=== PATIENT | male | born 1990 | race African-American/Black ===

== ENCOUNTER 2024-09-22 23:44 | Emergency (ER) | payer OTHER, SELFPAY ==
--- OUTSIDE RECORDS SUMMARY | 2024-09-22 23:47 | XMS_ITS | Encounter Summary ---
Author Organization [facility] Address [address] [place] [address]. [place], [place] [id number] [place] [id number] Care Team Providers Care Visitor Services Associate Name Role Phone Hayley Martinez Primary Care Provider [phone] Encounter Details Date Type Department Care Team (Late st Contact Info) Description 05/07/2020 [employer] Message Enc [facility] Internal [facility] [address] [place] [address] Hayley Martinez APNP [address] [place] [address] RE: Follow Up/Update Social History Tobacco Use Types Packs/Day Years Used Date Smoking Tobacco: Former Cigarettes 1 2016 Smokeless Tobacco: Never Alcohol Use Standard Drinks/Week Comments Yes 1 (1 standard drink = 0.6 oz pur e alcohol) SOCIAL--weekends, 12 pack AUDIT-C Answer Date Recorded Frequency of Alcohol Consumption 4 or more times a week 05/22/2019 Average Number of Drinks Not on file 019 Frequency of Binge Drinking Not on file 05/01 PHQ-2 Answer Date Recorded PHQ-2 Score 0 08/06/2019 Sex and Gender Information Value Date Recorded Sex Assigned at Not on file Legal Sex Male 7:15 PM CDT Gender Identity Not on file Sexual Orientation Not on file COVID-19 Exposure Response Date Recorded In the last month, have you been in contact with someone who was confirmed or suspected to have Coronavirus / COVID-19? No / Unsure 04/23/2020 1:18 PM CDT documented as of this encounter Progress Notes * Isaac Saini MD - 05/08/2020 10:10 AM CDT Hayley patient. documented in this encounter Plan of Treatment Upcoming Encounters Date Type Department Care Team (Late st Contact Info) Description 11/01/2024 9:30 AM PERSONNEL SPECIALIST Office Visit [facility] [facility], [address] [place] [address] Malcolm Mccloud MD [facility]. [address] [place] [address] documented as of this encounter Visit Diagnoses Not on filedocumented in this encounter Additional Health Concerns Infection Onset Date Last Indicated Resolved Time COVID-19 Rule Out 05/29/2020 05/30/2020 06/07/2020 7:30 AM CDT Assessment Noted Time PHQ-9 Depression Total Score: 1 05/22/20 19 9:36 AM CDT documented as of this encounter Care Teams Visitor Services Associate Relationship Specialty Start Date End Date Hayley Martinez APNP [address] [place] [address] PCP - General NURSE PRACTITIONER 05/22/19 documented as of this encounter
--- OUTSIDE RECORDS SUMMARY | 2024-09-22 23:47 | XMS_ITS | Referral Summary ---
Author Organization [facility] Address [address] [place] [address] Care Team Providers Care Hedis Review Nurse Name Role Phone Hayley Martinez Primary Care Provider + Encounters Date Type Department Care Team Description 09/11/2024 Telephone [facility] Diabetes and Endocrinology [address] [place] [phone] Mikaela Levy NP Appointment/Schedul es 09/07/[address] [facility] [address] [facility] 8th [place] [address] [place] [address] Merissa Choi RN 09/05/[address] [facility] Pul[facility] [address] [facility] 8th [place] [address] [place] [address] Gatito Gama MD Sarcoidosis (Primary Dx); High risk medication use 09/05/[address] [facility] [address] [facility] 8th [place] [address] [place] [phone] Darya Devine CMA 09/04/[address] [facility] Pul[facility] [address] [facility] 8th [place] [address] [place] [phone] Darya Devine CMA 08/25/2024 6:00 PM MANAGER IN TRAINING Lab [facility] ([facility] [address] [place] [address] Sarcoidosis 08/25/2024 3:35 PM MANAGER IN TRAINING - 08/25/2024 11:59 PM MANAGER IN TRAINING Hospital Encounter [facility] [address] [place] [address] Sarcoidosis Discharge Disposition: Discharge to home or self care 08/25/2024 4:00 PM MANAGER IN TRAINING Office Visit [facility] Pulmonary [address] [facility] 8th [address] [place] [phone] Gatito Gama MD Sarcoidosis (Primary Dx); High risk medication use 08/25/2024 3:15 PM MANAGER IN TRAINING - 08/25/2024 11:59 PM MANAGER IN TRAINING Hospital Encounter [facility] Pul[facility] [address] [facility] [address] [place] [address] Sarcoidosis Discharge Disposition: Discharge to home or self care 08/07/[address] [facility] Pulmonary [address] [facility] 8th [address] [place] [phone] Gatito Gama MD Sarcoidosis (Primary Dx); High risk medication use 08/02/2024 Orders Only [facility] Diabetes and Endocrinology [address] [place] [phone] Mikaela Levy NP Type 2 diabetes mellitus without complication, without long-term current use of insulin ([facility]/HCC) (HCC) (Primary Dx) from Last 3 Months Allergies No known active allergies Medications albuterol HFA (PROVENTIL HFA,VENTOLIN HFA,PROAIR HFA) 90 mcg/actuation inhaler Inhale 2 puffs every 6 (six) hours as needed for wheezing or shortness of breath 1 Inhaler 3 0 Active Additional Information Patient not taking.Reported on 08/25/2024 OneTouch Verio test strips strip USE TO TEST TID UTD 0 Active OneTouch Verio Flex meter misc USE UTD 0 Active OneTouch Delica Plus Lancet 33 gauge misc USE TO TEST TID 0 Active blood glucose diagnostic (glucose blood) strip 1 each by Not Applicable route 3 (three) times a day 0 Active LANCETS MISC 1 Device by Not Applicable route 3 (three) times a day 0 Active amLODIPine (NORVASC) 10 mg tablet daily Active atorvastatin (LIPITOR) 10 mg tablet daily 0 Active loratadine (CLARITIN) 10 mg tablet daily Active BD Génesis 2nd Gen Pen Needle 32 gauge x /32 needle USE UTD 0 Active ascorbic acid (VITAMIN C) 100 mg tablet 0 Active cholecalciferol (VITAMIN D-3) 400 unit capsule 0 Active hydroCHLOROthia zide (HYDRODIURIL) 25 mg tablet 2 Active losartan (COZAAR) 50 mg tablet Take 1 tablet (50 mg total) by mouth 2 (two) times a day 2 Active dapagliflozin propanediol (FARXIGA) 10 mg tablet Take 1 tablet (10 mg total) by mouth daily 30 tablet 6 4 Active semaglutide (OZEMPIC) 2 mg/dose (8 mg/3 mL) pen injector injection Inject 2 mg under the skin every 7 days 9 mL 2 4 Active Inflectra 100 mg injection 4 Active metFORMIN XR (GLUCOPHAGE XR) 500 mg 24 hr tabletIndicatio ns:Type 2 diabetes mellitus without complication, without long-term current use of insulin ([facility]) ([facility]) TAKE 2 TABLETS(1000 MG) BY MOUTH TWICE DAILY 360 tablet 1 4 Active Dexcom G7 Sensor deviceIndicatio ns:Type 2 diabetes mellitus without complication, without long-term current use of insulin (CMS/HCC) ([facility]) Change sensor every 10 days 9 each 3 4 Active fluconazole (DIFLUCAN) 150 mg tabletIndicatio ns:Urinary Tract/Genitouri nary Infection Take one tablet by mouth now & repeat in 3 days if no improvement in symptoms. 2 tablet 4 Active Additional Information Patient not taking.Reported on 08/25/2024 azaTHIOprine (IMURAN) 50 mg tablet Take 3 tablets (150 mg total) by mouth daily 90 tablet 2 5 Active azaTHIOprine (IMURAN) 50 mg tablet TAKE 3 TABLETS DAILY 90 tablet 4 025 Discontin ued(Reord er) Active Problems Problem Noted Date Diagnosed Date Hypertension associated with type 2 diabetes antonio litus 05/29/2024 Assessment & Plan (05/29/2024 1:46 PM CDT): Chronic problem. Controlled on current Losartan 50mg bid, HCTZ 25mg daily Will update labs. Verified that he uses mychart. Aware to check results/results letter in [employer]. Will contact by phone if needed. Class 3 severe obesity due t o excess calories with serious comorbidity and body mass index (BMI) of 40.0 to 44.9 in adult 05/29/2024 Assessment & Plan (05/29/2024 2:05 PM CDT): Discussed healthy diet and importance of regular physical activity (20- 30min/day, 150min/wk). Walks up to 16K steps/day at work. No exercise outside of work activity. BENITA (obstructive sleep apnea) 12/17/2020 Assessment & Plan (12/18/2021 3:29 PM CDT): The patient will continue with auto titrating CPAP set at 5-20 cm water pressure. Patient did receive an order for full set of supplies. [employer]. Patient is benefitting from CPAP Assessment & Plan (12/17/2020 2:44 PM CDT): The patient will continue with auto titrating CPAP therapy at 5-20 cm water pressure. The patient denied need for supplies. The DME company is [employer]. The patient was encouraged to increase CPAP usage to 4 hours a night on 70% of the nights. The patient is benefitting from CPAP therapy. Chronic hypoxemic respiratory failure ([facility]) 07/31/2020 Sarcoidosis 12/26/2019 Left sided abdominal pain 10/31/2019 Type 2 diabetes mellitus wit hout complication, without long-term current use of insulin ([facility]) 05/22/2019 Assessment & Plan (05/29/2024 2:06 PM CDT): Chronic problem. A1c at goal 6.3%. no changes at this time. Discussed dropping back metformin to 1000mg daily to see if BG rises. Current medications: Farxiga 10mg daily Metformin XR 1000mg twice daily with meals Ozempic 2mg weekly DM eye exam at [facility] summer 2023. Letter sent to get copy of report. Will update labs. Verified that he uses [facility]. Aware to check results/results letter in [employer]. Will contact by phone if needed. Discussed with Jose Santiago: Strive for regular exercise (30min most days) and diet (get at least 4-5 servings of fruit and veggies daily, avoid processed foods, increase lean protein intake and decrease carb portions as well as fruit juices, regular soda & desserts). Watch carbs and simple sugars. Check the blood sugar: Dexcom G7. Check the feet daily for skin breakdown and infection. Essential hypertension 05/22/2019 Resolved Problems Problem Noted Date Diagnosed Date Resolved Date Uncontrolled type 2 diabetes mellitus with hyperglycemia 04/29/2023 05/29/2024 Assessment & Plan (04/29/2023 3:57 PM CDT): Hba1c was Lab Results Component Value Date HGBA1C 6.1 04/29/2023 today, indicating adequate DM control, with risk of hypoglycemia Goal Hba1c of 6.1 and blood glucose in the 90 to 130 range was explained Diet and exercise were advised Prevention and treatment of hyypoglcyemia were discussed with the patient Blood glucose monitoring : Start CGM with freestyle Mela 3 Adjustment to medications: Increase Ozempic to 2 mg once Start Farxiga 10 mg daily Continue metformin a 1000 mg twice a day Lower Tresiba to 40 units daily Advised to lowering Tresiba by 10 units every week as long as blood glucoses stay in the 90 to 130 range Immunizations Name Administration Dates Next Due DTP 02/09/1992, 1,1990,10/03 DTaP 03/30/1995 DTaP, Unspecified 03/30/1995 Hep B, Adolescent or Pediatric 08/14/2002,2001,04/12/2001 HiB 10/31/1991, 1,1990,10/03 Influenza, Quadrivalent, Misti l Culture-based MDCK, Preservative Free, Antibiotic Free, Intramuscular 06/11/2023,06/11/2022 Influenza, Quadrivalent, Spl it, Preservative Free, Intramuscular 06/27/2020 MMR 03/30/1995,10/31/1991 MMRV 03/30/1995,10/31/1991 OPV 03/30/1995, 2,02/06/1991,12/05,1990 OPV, Unspecified 03/30/1995, 2,02/06/1991,12/05,1990 Tdap 05/22/2019 Social History Tobacco Use Types Packs/Day Years Used Date Smoking Tobacco: Former Cigarettes 1 6 1 - 05/31/2017 Smokeless Tobacco: Never Alcohol Use Standard Drinks/Week Comments Yes 0 (1 standard drink = 0.6 oz pur e alcohol) Sex and Gender Information Value Date Recorded Sex Assigned at Not on file Legal Sex Male 5:46 PM MANAGER IN TRAINING Gender Identity Not on file Sexual Orientation Not on file Last Filed Vital Signs Vital Sign Reading Time Taken Comments Blood Pressure 138/87 08/25/2024 3:54 PM MANAGER IN TRAINING Pulse 100 08/25/2024 3:54 PM MANAGER IN TRAINING Temperature 36.6 ??C (97.9 ??F) 08/25/2024 3:54 PM CS T Respiratory Rate 16 08/25/2024 3:54 PM MANAGER IN TRAINING Oxygen Saturation 100% 08/25/2024 3:54 PM MANAGER IN TRAINING Inhaled Oxygen Concentration - - Weight 142.9 kg (315 lb) 08/25/2024 3:54 PM MANAGER IN TRAINING Height 177.8 cm (5' 10 ) 08/25/2024 3:54 PM MANAGER IN TRAINING Body Mass Index 45.2 08/25/2024 3:54 PM MANAGER IN TRAINING Plan of Treatment Not on file Procedures Procedure Name Priority Date/Time Associated Diagnosis Comments EGFR Routine 08/25/2024 4:33 PM MANAGER IN TRAINING Sarcoidosis DIFFERENTIAL AUTO Routine 08/25/2024 4:3 3 PM MANAGER IN TRAINING Sarcoidosis CBC WITH AUTO DIFFERENTIAL Routine 08/25/2024 4:33 PM MANAGER IN TRAINING Sarcoidosis COMPREHENSIVE METABOLIC PANEL Routine 08/25/2024 4:33 PM MANAGER IN TRAINING Sarcoidosis HISTOPLASMA ANTIBODY Routine 08/25/2024 4:33 PM MANAGER IN TRAINING Sarcoidosis T-SPOT.TB Routine 08/25/2024 4:33 PM MANAGER IN TRAINING Sarcoidosis XR CHEST PA LATERAL 2 VIEWS Schedule Routine, Read Routine (OP Routine) 08/25/2024 3:42 PM MANAGER IN TRAINING Sarcoidosis PULMONARY FUNCTION TEST (PFT) Routine 08/25/2024 3:32 PM MANAGER IN TRAINING Sarcoidosis LIPID PANEL Routine 05/30/2024 9:16 AM CDT Type 2 diabetes mellitus without complication, without long-term current use of insulin (CMS/HCC) (HCC) ALBUMIN CREATININE RATIO, URINE Routine 05/30/2024 9:16 AM CDT Type 2 diabetes mellitus without complication, without long-term current use of insulin (CMS/HCC) (HCC) POCT HEMOGLOBIN A1C Routine 05/29/2024 1 :31 PM CDT Type 2 diabetes mellitus without complication, without long-term current use of insulin (CMS/HCC) (HCC) HEPATITIS PANEL, ACUTE Routine 07/30/2020 3:27 PM MANAGER IN TRAINING Sarcoidosis from Last 3 Months or Most Recently Relevant to Health Maintenance Results * Histoplasma Antibody Blood (08/25/2024 4:33 PM MANAGER IN TRAINING) Histoplasma Ab, yeast CF Negative Negative [facility] Histoplasma Ab, Immunodiffusion Negative Negative [facility] Comment: A negative complement fixation and immunodiffusion (CF/ID) result does not exclude the diagnosis of histoplasmosis. ?? Repeat testing by CF/ID in 1-2 weeks if clinically indicated. Test Performed by: [address] [address] [employer] Cutter: Sheeba Bee Ph.D.; CLIA# [id number] Blood 08/25/2024 4:33 PM MANAGER IN TRAINING 08/25/2024 5:24 PM MANAGER IN TRAINING us Gatito Gama MD LAB MICROBIOLOGY - GENERAL O RDERABLES Final Result [facility] Department [place] [address] Organ ref Lab * T-SPOT.TB Blood (08/25/2024 4:33 PM MANAGER IN TRAINING) [facility] T-SPOT.TB Negative [facility] Comment: Normal Value: Negative A negative test result does not exclude the possibility of exposure to or infection with Mycobacterium tuberculosis (M. tuberculosis). ??Patients with recent exposure to TB infected individuals exhibiting a negative T-SPOT.TB result should be considered for retesting within 6 weeks or if other relevant clinical symptoms indicate. ??Results from T-SPOT.TB testing must be used in conjunction with each individual's epidemiological history, current medical status, and results of other diagnostic evaluations. ??The T-SPOT.TB test is qualitative and results are reported as positive, borderline or negative, given that the test controls perform as expected. In line with the Centers for Disease Control and Prevention's 2010 recommendation to report quantitative measurements alongside the qualitative result, the laboratory provides spot counts for informational purposes only. ??The T-SPOT.TB test should not be interpreted as a quantitative test. T-SPOT.TB Panel A Spot Count 0 [facility] T-SPOT.TB Panel B Spot Count 0 [facility] T-SPOT.TB Negative Control Passed [facility] T-SPOT.TB Positive Control Passed [facility] Comment: Test Performed at: [facility], [place] [address] [place] [address] ??[phone] ? BAKARI QUINTANILLA,PHD Blood 08/25/2024 4:33 PM MANAGER IN TRAINING 08/25/2024 5:14 PM MANAGER IN TRAINING us Gatito Gama MD LAB MICROBIOLOGY - GENERAL O RDERABLES Final Result Performing Organization Address City/[facility]/ZIP Co de Phone Number [facility] Department [place] [address] * eGFR (08/25/2024 4:33 PM MANAGER IN TRAINING) eGFR >90 >=60 mL/min/1. 73 m2 Comment: Interpretive Data Reference Interval Normal ?>/= 90 mL/min/1.73m2 Mildly decreased* ? 60 - 89 mL/min/1.73m2 Mildly to moderately decreased ?45 - 59 mL/min/1.73m2 Moderately to severely decreased ??30 - 44 mL/min/1.73m2 Severely decreased ?15 - 29 mL/min/1.73m2 Kidney Failure ?< 15 ??mL/min/1.73m2 *Relative to young adult level Estimated glomerular filtration rate is determined by the 2020 CKD-EPI equation recommended by the National Kidney Foundation (A Unifying Approach to GFR Estimation: Recommendations of the NKF-ASK Task Force on Reassessing the Inclusion of Race in Diagnosing Kidney Disease, JASN 202). The CKD-EPI equation should not be used for patients with unstable renal function and has not been validated in children and those over 70. Current interpretive data was last reviewed 2021. Blood 08/25/2024 4:33 PM MANAGER IN TRAINING 08/25/2024 4:51 PM MANAGER IN TRAINING us Gatito Gama MD LAB BLOOD ORDERABLES Final R esult RASHADNYL JANICE [facility] Department [place] [address] * Differential, auto (08/25/2024 4:33 PM MANAGER IN TRAINING) Neutrophil abs 5.3 1.5 - 6.5 K/cumm Imm gran abs 0.0 0.0 - 0.1 K/cumm [facility] Lymphocyte abs 1.2 0.8 - 3.3 K/cumm [facility] Monocyte abs 0.7 0.2 - 0.8 K/cumm [facility] Eosinophil abs 0.2 0.0 - 0.5 K/cumm [facility] Basophil abs 0.0 0.0 - 0.1 K/cumm [facility] Neutrophil pct 70.9 % [facility] Comment: Interpretive Data Percent cell count reference ranges are not reported, since discordance with absolute values may lead to misinterpretation of CBC data. Current Interpretive Data was last revised on 2017. Imm gran pct 0.5 % [facility] Comment: Interpretive Data Percent cell count reference ranges are not reported, since discordance with absolute values may lead to misinterpretation of CBC data. Current Interpretive Data was last revised on 2017. Lymphocyte pct 16.0 % [facility] Comment: Interpretive Data Percent cell count reference ranges are not reported, since discordance with absolute values may lead to misinterpretation of CBC data. Current Interpretive Data was last revised on 2017. Monocyte pct 9.9 % [facility] Comment: Interpretive Data Percent cell count reference ranges are not reported, since discordance with absolute values may lead to misinterpretation of CBC data. Current Interpretive Data was last revised on 2017. Eosinophil pct 2.4 % [facility] Comment: Interpretive Data Percent cell count reference ranges are not reported, since discordance with absolute values may lead to misinterpretation of CBC data. Current Interpretive Data was last revised on 2017. Basophil pct 0.3 % [facility] Comment: Interpretive Data Percent cell count reference ranges are not reported, since discordance with absolute values may lead to misinterpretation of CBC data. Current Interpretive Data was last revised on 2017. Blood 08/25/2024 4:33 PM MANAGER IN TRAINING 08/25/2024 4:47 PM MANAGER IN TRAINING us Gatito Gama MD LAB BLOOD ORDERABLES Final R esult [facility] Department [place] [address] * CBC with auto differential (08/25/2024 4:33 PM MANAGER IN TRAINING) [facility] WBC 7.5 3.8 - 9.9 K/cumm Hgb 14.5 13.0 - 17.5 g/dL [facility] Hct 42.9 38.9 - 50.3 % [facility] Plt 246 150 - 400 K/cumm [facility] MPV 10.7 9.1 - 12.3 fL [facility] RBC 5.07 4.30 - 5.80 M/cumm [facility] MCV 84.6 81.3 - 96.4 fL [facility] MCH 28.6 27.1 - 33.3 pg [facility] MCHC 33.8 32.3 - 35.7 g/dL [facility] RDW CV 13.8 11.1 - 14.9 % [facility] RDW SD 42.7 35.7 - 48.1 fL [facility] NRBC abs 0.00 0.00 - 0.01 K/cumm [facility] Blood 08/25/2024 4:33 PM MANAGER IN TRAINING 08/25/2024 4:47 PM MANAGER IN TRAINING Gatito Gama MD LAB BLOOD ORDERABLES Final R esult [facility] [place] [address] * Comprehensive metabolic panel (08/25/2024 4:33 PM MANAGER IN TRAINING) [facility] Sodium 139 135 - 145 mmol/L Potassium, pl 3.9 3.3 - 4.9 mmol/L [facility] Chloride 100 97 - 110 mmol/L [facility] CO2 27 22 - 32 mmol/L [facility] Anion gap 12 2 - 15 mmol/L [facility] BUN 12 6 - 25 mg/dL [facility] Creatinine 1.01 0.80 - 1.30 mg/dL [facility] Glucose 92 70 - 199 mg/dL [facility] Comment: Interpretive Data Fasting glucose >/= 126 mg/dl is diagnostic for diabetes. ?? Fasting is defined as no caloric intake for at least 8 hours. Fasting glucose between 100 mg/dl to 125 mg/dl is diagnostic of prediabetes. In a patient with classic symptoms of hyperglycemia or hyperglycemic crisis, a random glucose >/= 200 mg/dl is diagnostic for diabetes. In the absence of unequivocal hyperglycemia, results should be confirmed by repeat testing. The classification and Diagnosis of Diabetes Diabetes Care 2021; 46: S19-S40. Current interpretive data was last revised 2022. Calcium 9.5 8.5 - 10.3 mg/dL [facility] Bilirubin, total 0.6 0.1 - 1.2 mg/dL [facility] Protein, pl 8.0 6.5 - 8.5 g/dL [facility] Albumin 4.6 3.5 - 5.0 g/dL [facility] Alk phos 90 40 - 130 Units/L [facility] ALT 22 7 - 55 Units/L [facility] AST 35 10 - 50 Units/L [facility] Blood 08/25/2024 4:33 PM MANAGER IN TRAINING 08/25/2024 4:47 PM MANAGER IN TRAINING us Gatito Gama MD LAB BLOOD ORDERABLES Final R esult [facility] Department [place] [address] * XR Chest Pa Lateral 2 Views (08/25/2024 3:42 PM MANAGER IN TRAINING) Anatomical Region Laterality Modality Body, Chest N/A Computed Radiogr aphy 08/25/2024 3:50 PM MANAGER IN TRAINING Impressions 08/25/2024 3:50 PM MANAGER IN TRAINING There are bilateral reticulonodular opacities in keeping with sarcoidosis, not significantly changed from the prior radiograph and better evaluated on the chest CT dated 02/25/2024. ??There may be mild superimposed bilateral parahilar and lower lung atelectasis. There is no new consolidation. ??No pleural effusion or pneumothorax is identified. ??The cardiomediastinal silhouette is unchanged with hilar and mediastinal lymphadenopathy which is better evaluated on the chest CT dated 02/25/2024. Electronically signed by: Malcolm Cassidy M.D. Narrative 08/25/2024 3:50 PM MANAGER IN TRAINING EXAMINATION: XR CHEST PA LATERAL 2 VIEWS COMPARISON: 01/14/2024 3:38 PM Procedure Note Malcolm Cassidy MD PhD - 08/25/2024 EXAMINATION: XR CHEST PA LATERAL 2 VIEWS COMPARISON: 01/14/2024 3:38 PM IMPRESSION: There are bilateral reticulonodular opacities in keeping with sarcoidosis, not significantly changed from the prior radiograph and better evaluated on the chest CT dated 02/25/2024. There may be mild superimposed bilateral parahilar and lower lung atelectasis. There is no new consolidation. No pleural effusion or pneumothorax is identified. The cardiomediastinal silhouette is unchanged with hilar and mediastinal lymphadenopathy which is better evaluated on the chest CT dated 02/25/2024. Electronically signed by: Malcolm Cassidy M.D. Gatito Gama MD IMG XR PROCEDURES Final Resu lt * Pulmonary Function Test - (08/25/2024 3:32 PM MANAGER IN TRAINING) FVC PRE 3.74 L [facility] FVC %PRE PRED 82 % [facility] FEV1 PRE 2.18 L [facility] FEV1 %PRE PRED 58 % [facility] FEV1/FVC PRE 58.4 % [facility] Anatomical Region Laterality Modality PFT 08/25/2024 3:23 PM MANAGER IN TRAINING Narrative 08/27/2024 1:57 PM MANAGER IN TRAINING PFT performed at:->[facility] Adult PFT [facility]- [id number] Procedure:->Spirometry Pulmonary Function Test Interpretation SPIROMETRY: There is a decrease in expiratory airflow at all lung volumes. The FEV1 to FVC ratio is reduced. The inspiratory loop is appropriate for the expiratory flow abnormality. Impression: There is a moderately severe obstructive defect. Compared with most recent study, there has been significant interval worsening of the FVC and FEV1. The attending pulmonary physician certifies a physician presence in the [facility] during the administration of aerosolized bronchodilator. The attending pulmonary physician certifies that he/she has reviewed and interpreted the graphic and numerical data of this pulmonary function study and agrees with the written final report. The lower limit of normal for PaO2 and %HbO2 is age dependent. However, the [facility] Pulmonary Function Laboratory defines hypoxemia as a PaO2 <56 mm Hg or a %HbO2 <89%. us Gatito Gama MD PFT ORDERABLES Final Result * Albumin Creatinine Ratio, Urine (05/30/2024 9:16 AM CDT) Creatinine, ur 172 20 - 320 mg/dL [facility] Microalbumin, ur 1.4 See Note: mg/dL [facility] Comment: Reference Range: Reference Range Not established Microalbumin/creat ratio 8 <30 mg/g creat [facility] Comment: The ADA defines abnormalities in albumin excretion as follows: Albuminuria Category ?Result (mg/g creatinine) Normal to Mildly increased ?? <30 Moderately increased ? 30-299 Severely increased ? > OR = 300 The ADA recommends that at least two of three specimens collected within a 3-6 month period be abnormal before considering a patient to be within a diagnostic category. Urine 05/30/2024 9:16 AM CDT 05/30/2024 9:17 AM CDT us Mikaela Levy [facility] LAB URINE ORDERABLES Rita l Result [facility] [address] [place] [address] * Lipid panel (05/30/2024 9:16 AM CDT) Cholesterol 176 <200 mg/dL [facility] HDL 74 > OR = 40 mg/dL [facility] Triglycerides 145 <150 mg/dL [facility] LDL 77 mg/dL (calc) [facility] Comment: Reference range: <100 Desirable range <100 mg/dL for primary prevention; ?? <70 mg/dL for patients with CHD or diabetic patients with > or = 2 CHD risk factors. LDL-C is now calculated using the Yael calculation, which is a validated novel method providing better accuracy than the Friedewald equation in the estimation of LDL-C. Richard TANG et al. JUAN. 2013;310(19): 3347-3079 (http://education.I Had Cancer/faq/SOI274) Chol/HDL ratio 2.4 <5.0 (calc) [facility] Non-HDL, (LDL+VLDL) 102 <130 mg/dL (calc) [facility] Comment: For patients with diabetes plus 1 major ASCVD risk factor, treating to a non-HDL-C goal of <100 mg/dL (LDL-C of <70 mg/dL) is considered a therapeutic option. Blood 05/30/2024 9:16 AM CDT 05/30/2024 9:17 AM CDT Mikaela Levy IND[facility]OOK LAB BLOOD ORDERABLES Rita l Result [facility] [address] [place] [address] * (ABNORMAL) POCT hemoglobin A1c (05/29/2024 1:31 PM CDT) Hemoglobin A1C, POC 6.3 4.0 - 5.6 % Blood 05/29/2024 1:31 PM CDT us Mikaela Levy NP POINT OF CARE TEST ORDERA BLES Final Result * Hepatitis panel, acute (07/30/2020 3:27 PM MANAGER IN TRAINING) Hep A IgM Nonreactive Nonreactive [facility] Comment: Interpretive Data: If Hep A IgM Ab is reported as Equivocal, a new sample should be drawn in two weeks for testing. Current interpretive data was last revised on 19. Hep B core IgM Nonreactive Nonreactive [facility] Comment: Interpretive Data If HepB Core IgM Ab is reported as Equivocal, a new sample should be drawn in two weeks for testing. Current interpretive data was last revised on 19. Hep C Ab Nonreactive Nonreactive [facility] Comment:Antibodies to HCV no t detected. Does NOT exclude the possibility of recent exposure to HCV. HepBsAg Nonreactive Nonreactive [facility] Blood specimen (specimen) 07/30/2020 3:27 PM MANAGER IN TRAINING 07/30/2020 3:50 PM MANAGER IN TRAINING us Gatito Gama MD LAB MICROBIOLOGY - GENERAL O RDERABLES Edited Result - Final [facility] Department [place] [address] from Last 3 Months or Most Recently Relevant to Health Maintenance Insurance [id number] [employer] PPO [facility] HMO/PPO Address: [facility] [address] [place] [address] [facility] MEDICAL [facility] HMO/PPO Address: [facility] [address] [place] [address] Care Teams Hedis Review Nurse Relationship Specialty Start Date End Date Hayley Martinez PA [address] [place] [address] PCP - General Nurse Practitioner 11/02/19
--- OUTSIDE RECORDS SUMMARY | 2024-09-22 23:47 | XMS_ITS | Encounter Summary ---
Author Organization [facility] Address [address] [place] [address]. [place], [place] [id number] [place] [address] Care Team Providers Care Content Strategist Name Role Phone Hayley Martinez Primary Care Provider [phone] Encounter Details Date Type Department Care Team (Late st Contact Info) Description 04/05/2020 [place] Message Enc [facility] Medical Group Family & Internal Medicine [facility] [address] [place] [address] Hayley Martinez APNP [address] [place] [address] RE: Follow Up/Update Social History [...] have Coronavirus / COVID-19? 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 [place] [address] [place] [address] documented as of this encounter Visit Diagnoses Not on filedocumented in this encounter Additional Health Concerns Infection Onset Date Last Indicated Resolved Time COVID-19 Rule Out 05/29/2020 05/30/2020 06/07/2020 7:30 AM CDT Assessment Noted Time PHQ-9 Depression Total Score: 1 05/22/20 9:36 AM CDT documented as of this encounter Care Teams Content Strategist Relationship Specialty Start Date End Date Hayley Martinez APNP [address] [place] [address] PCP - General NURSE PRACTITIONER 05/22/19 documented as of this encounter
--- OUTSIDE RECORDS SUMMARY | 2024-09-22 23:47 | XMS_ITS | Clinical Summary ---
Author Organization [facility] Address [address] [place] [phone] Phone Care Team Providers Care Financial Foundations Associate Name Role Phone Unavailable Primary Care Provider Unavailabl e Allergies No known active allergies Medications No known medications Social History Tobacco Use Types Packs/Day Years Used Date Smoking Tobacco: Passive Smo ke Exposure - Never Smoker Alcohol Use Standard Drinks/Week Comments Yes 0 (1 standard drink = 0.6 oz pur e alcohol) social Sex and Gender Information Value Date Recorded Sex Assigned at Not on file Legal Sex Male 6:05 AM HAND CELL TUBER Gender Identity Not on file Sexual Orientation Not on file Last Filed Vital Signs Vital Sign Reading Time Taken Comments Blood Pressure 150/66 07/07/2011 11:48 AM HAND CELL TUBER Pulse 72 07/07/2011 11:48 AM HAND CELL TUBER Temperature 37.1 ??C (98.7 ??F) 07/07/2011 9:58 AM CS T Respiratory Rate 18 07/07/2011 11:48 AM HAND CELL TUBER Oxygen Saturation 99% 07/07/2011 11:48 AM HAND CELL TUBER Inhaled Oxygen Concentration - - Weight - - Height - - Body Mass Index - - Plan of Treatment Health Maintenance Due Date Last Done Comments DTAP/TDAP/TD VACCINES (1 - Tdap) 2009 HEPATITIS B VACCINES (1 of 3 - 19+ 3-dose series) 2009 INFLUENZA VACCINE (#1) 2024 HPV VACCINES Aged Out No longer eligi ble based on patient's age to complete this topic PNEUMOCOCCAL VACCINE 0-64 YEARS Aged Out No longer eligible based on patient's age to complete this topic
--- OUTSIDE RECORDS SUMMARY | 2024-09-22 23:47 | XMS_ITS | Patient Health Summary ---
Author Organization [facility] Address [address] [facility] [place] [address] Care Team Providers Care Hydrocrane Operator Name Role Phone Unavailable Primary Care Provider Unavailabl e Note from [facility],non-owned Affiliates and Associated Physician Practices is amultiple site organization consisting of ambulatory clinics and hospital sitesin [place], [place], [place] and [place]. This disclosure is being madepursuant to the Care Everywhere program and may not contain all information available regarding this patient. Last updated 18.[facility] Social History Tobacco Use Types Packs/Day Years Used Date Smoking Tobacco: Never Assessed Sex and Gender Information Value Date Recorded Sex Assigned at Not on file Gender Identity Not on file Sexual Orientation Not on file Procedures * DERMATOPATHOLOGY(Performed 2020) Results * DERMATOPATHOLOGY (2020 12:00 AM RECREATION ESTABLISHMENT MANAGER) Case Report Dermatopathology Report ? Case: [id number] ? Authorizing Provider: ??Natalie Patterson MD ? Collected: ? 2020 12:00 AM ? Ordering Location: ? [facility] Care DermPath Lab ?Received: ?08/02/2020 08:29 AM ? Pathologist: ? Farideh Barton MD ? Specimen: ?Skin, right thumb ? 0 1:42 PM [facility] DERMATOPATHOLOGY LABORATORY Final Diagnosis Specimen A. SKIN, right thumb: VERRUCA VULGARIS (B07.8) 0 1:42 PM [facility] DERMATOPATHOLOGY LABORATORY Clinical History R/O VV, irritated. 0 1:42 PM [facility] DERMATOPATHOLOGY [facility]ORATORY Gross Description Specimen A: Received is one formalin filled container labeled with the patient's name and designated right thumb. The specimen consists of a shave measuring [id number], bisected. Jar 0. 0 1:42 PM RECREATION ESTABLISHMENT MANAGER DERMATOPATHOLOGY LABORATORY Microscopic Description Specimen A. SKIN, right thumb: There is digitated epidermal hyperplasia, hypergranulosis, vacuolated granular layer cells, and compact hyperorthokeratosis . 0 1:42 PM RECREATION ESTABLISHMENT MANAGER DERMATOPATHOLOGY LABORATORY Disclaimer An external and internal positive and negative controls are appropriate for the histochemical, immunohistochemical and immunofluorescence stain(s) in this case (if any), except where stated explicitly. The performance characteristics of the stain(s) cited in this report were developed and its performance characteristic determined by the Dermatopathology Laboratory at [facility], directed by Dr. Ethan Jones. These tests need not be, and therefore are not, approved by the [place] Food and Drug Administration. The tests are used for clinical purposes. Billing Codes Specimen Charges Stain Charges 89297 1 0 1:42 PM RECREATION ESTABLISHMENT MANAGER DERMATOPATHOLOGY LABORATORY Embedded Images 0 1:42 PM RECREATION ESTABLISHMENT MANAGER DERMATOPATHOLOGY LABORATORY Pathology/Cytolog y TISSUE SPECIMEN FROM SKIN / Unknown 2020 08/02/2020 8:29 AM RECREATION ESTABLISHMENT MANAGER Natalie Patterson MD LAB - PATHOLOGY/CYT OLOGY ORDERABLES Performing Organization Address City/State/[facility] Co de Phone Number DERMATOPATHOLOGY LABORATORY [facility] - Department of Dermatology [facility] Specialized Medicine [address] [place] [address], [address] [phone]
--- OUTSIDE RECORDS SUMMARY | 2024-09-22 23:47 | XMS_ITS | Clinical Summary ---
Author Organization [facility] Address [address] [place] [address]. [place], [place] [address] [place] [address] Care Team Providers Care Manager Target Name Role Phone Hayley Martinez Primary Care Provider [phone] Allergies No known active allergies Medications albuterol sulfate HFA (PROAIR HFA) 108 (90 Base) MCG/ACT inhalerIndications: Shortness of breath,Pneumonia of both lungs due to infectious organism, unspecified part of lung Inhale 2 puffs into the lungs every 6 (six) hours as needed for Wheezing. 1 Inhaler 0 Active INSULIN SYRINGE 1CC/29G (SAFETY INSULIN SYRINGES) 29G X 1/2 1 ML MiscIndications:Typ e 2 diabetes mellitus without complication, without long-term current use of insulin ([facility] HHS/[facility]) 1 Device by Does not apply route nightly. 100 each 0 Active loratadine 10 MG tablet Take 1 tablet (10 mg total) by mouth daily. Active Insulin Pen Needle (PEN NEEDLES 29GX1/2 ) 29G X 12MM MiscIndications:Typ e 2 diabetes mellitus without complication, without long-term current use of insulin ([facility] HHS/HCC) 1 Units by Does not apply route 4 (four) times daily. 200 each 3 0 Active METFORMIN 500 MG tabletIndications:T ype 2 diabetes mellitus without complication, without long-term current use of insulin (CMS/HCC HHS/HCC) TAKE 2 TABLETS(100 0 MG) BY MOUTH TWICE DAILY WITH MEALS 360 tablet 0 Active Glucose Blood (BLOOD GLUCOSE TEST STRIPS) StripIndications:Ty pe 2 diabetes mellitus without complication, without long-term current use of insulin ([facility]) 1 strip by Does not apply route 3 (three) times a day. 300 strip 1 0 Active Lancets MiscIndications:Typ e 2 diabetes mellitus without complication, without long-term current use of insulin ([facility]) 1 Device by Does not apply route 3 (three) times a day. 300 Container 1 0 Active azaTHIOprine (IMURAN) 50 MG tablet Take 3 tablets (150 mg total) by mouth daily. 4 Active Continuous Glucose Sensor (Cinexio G7 SENSOR) Misc CHANGE SENSOR EVERY 10 DAYS 4 Active dapagliflozin (FARXIGA) 10 MG tablet Take 1 tablet (10 mg total) by mouth daily. 4 Active INFLECTRA 100 MG injection 4 Active semaglutide (OZEMPIC) 2 mg/dose injection (PEN) Inject 2 mg into the skin once a week. 4 Active atorvastatin (LIPITOR) 10 MG tabletIndications:M ixed hyperlipidemia TAKE 1 TABLET(10 MG) BY MOUTH EVERY NIGHT AT BEDTIME 90 tablet 4 Active losartan (COZAAR) 50 MG tabletIndications:E ssential hypertension TAKE 1 TABLET(50 MG) BY MOUTH TWICE DAILY 180 tablet 1 4 Active amLODIPine (NORVASC) 10 MG tabletIndications:E ssential hypertension TAKE 1 TABLET(10 MG) BY MOUTH DAILY 90 tablet 4 Active hydroCHLOROthiazide (HYDRODIURIL) 25 MG tabletIndications:E ssential hypertension Take 1 tablet (25 mg total) by mouth every morning. 90 tablet 3 4 Active Active Problems Problem Noted Date Diagnosed Date Mixed hyperlipidemia 03/23/2024 BENITA (obstructive sleep apnea) 12/02/2021 Elevated CPK 12/12/2020 Pulmonary sarcoidosis ([facility]) 12/26/19 20 Essential hypertension 05/22/2019 Type 2 diabetes mellitus wit hout complication, without long-term current use of insulin ([facility]) 05/22/2019 Resolved Problems Problem Noted Date Diagnosed Date Resolved Date BMI 45.0-49.9, adult ([facility]/HCC [facility]) 11/25/2020 03/23/2024 Left sided abdominal pain 10/31/2019 Encounters Date Type Department Care Team Description 09/14/2024 Scan [facility] INFO SRVCS Scanned, Doc [facility] Lab (SCAN) 08/25/2024 Scan [facility] HEALTH INFO SRVCS Scanned, Doc Med Group 08/15/2024 Telephone [facility] Medical Group Family & Internal Medicine [address] [address] aHyley Martinez APNP Lab Results 07/17/[address] [address] Malcolm Mccloud MD Appointment Request from Last 3 Months Immunizations Name Administration Dates Next Due Dtap 03/30/1995 Dtap (Generic) 03/30/1995 Dtp 02/09/1992, 1,1990,1990 Dtp (Generic) 02/09/1992, 1,1990,1990 Fluzone 6 Months+ Quad (0.5 mL Prefilled Syringe) 06/27/2020 Hepatitis B Pediatric 08/14/2002,06/12/2002,03/30 Hib (Generic) 10/31/1991, 1,1990,1990 Influenza Adult (Generic) 06/11/2022 MMR 03/30/1995,10/31/1991 MMR (Generic) 03/30/1995,10/31/1991 Opv 03/30/1995, 2,02/06/1991,1990,1990 Pneumococcal (Prevnar 20) 03/23/2024 Tdap (Historical Only-select from magnify glass) 05/22/2019 Family History Medical History Relation Comments Diabetes Father Hypertension Father COPD Maternal Grandfather Hypertension Maternal Grandmother Diabetes Mother Diabetes Sister Relation Status Comments Father Maternal Grandfather Maternal Grandmother Mother Sister Social History Tobacco Use Types Packs/Day Years Used Date Smoking Tobacco: Former Cigarettes 1 6 2 011 - 2017 Smokeless Tobacco: Never Tobacco Cessation:Counseling Given: Not Answered Alcohol Use Standard Drinks/Week Comments Yes 1 (1 standard drink = 0.6 oz pur e alcohol) SOCIAL--weekends, 12 pack AUDIT-C Answer Date Recorded Frequency of Alcohol Consumption 4 or more times a week 05/22/2019 Average Number of Drinks Not on file 019 Frequency of Binge Drinking Not on file 05/01 PHQ-2 Answer Date Recorded Patient Health Questionnaire-2 Score 0 03/23/2024 Sex and Gender Information Value Date Recorded Sex Assigned at Not on file Legal Sex Male 7:15 PM CDT Gender Identity Not on file Sexual Orientation Not on file Last Filed Vital Signs Vital Sign Reading Time Taken Comments Blood Pressure 124/80 03/23/2024 8:08 AM CDT Pulse 96 03/23/2024 8:08 AM CDT Temperature 36.8 ??C (98.2 ??F) 03/23/2024 8:08 AM CD T Respiratory Rate 16 03/23/2024 8:08 AM CDT Oxygen Saturation 96% 03/23/2024 8:08 AM CDT Inhaled Oxygen Concentration - - Weight 135.7 kg (299 lb 1.6 oz) 03/23/2024 8:08 AM CDT Height 180.3 cm (5' 11 ) 03/23/2024 8:08 AM CDT Body Mass Index 41.72 03/23/2024 8:08 AM CDT Plan of Treatment Upcoming Encounters Date Type Department Care Team (Late st Contact Info) Description 11/01/2024 9:30 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 [place] [address] [place] [address] Health Maintenance Due Date Last Done Comments COVID-19 Vaccine (#1) 1995 Influenza Adult (#1) 2024 06/11/2023, 06/11/2022, 06/27/2020 PHQ-2 (Physician [place]) 08/30/2024 03/23/2024 Hemoglobin A1C 09/23/2024 03/23/2024, 11/28, 12/02/2021, Additional history exists Annual Physical 03/23/2025 03/23/2024, 11/28, 12/02/2021 PHQ-2 (Physician [place]) 03/23/2025 03/23/2024 Kidney Health Evaluation 05/30/2025 05/30/2024 Lipid Panel 05/30/2025 05/30/2024, 06/0 03/2023, 12/02/2021, Additional history exists Diabetes: Retinopathy Eye Exam 10/06/2025 10/06/2023, 05/30/2021, 05/02/2020 DTaP, Tdap and Td Vaccines (4 - Td or Tdap) 05/22/2029 05/22/2019, 03/30/1995, 03/30/1995, Additional history exists Hepatitis B Vaccines Completed 08/14/2002, 06/12/2002, 04/12/2001 Hepatitis C Completed 12/02/2021 Pneumococcal Vaccine: Pediatrics (0 to 5 Years) and At-Risk Patients (6 to 64 Years) Completed 03/23/2024 HPV Vaccines Aged Out No longer eligi ble based on patient's age to complete this topic Meningococcal B Vaccine Aged Out No l onger eligible based on patient's age to complete this topic Meningococcal Vaccine Aged Out No chema daija eligible based on patient's age to complete this topic RSV Immunizations Under 20 Months Aged Out No longer eligible based on patient's age to complete this topic Procedures Procedure Name Priority Date/Time Associated Diagnosis Comments OUTSIDE LAB (SCAN ORDER) 09/14/2024 OUTSIDE LAB (SCAN ORDER) 09/14/2024 LIPID PANEL Routine 05/30/2024 9:14 AM CDT General medical examination HEMOGLOBIN, GLYCOSYLATED Routine 03/23/2024 Type 2 diabetes mellitus without complication, without long-term current use of insulin ([facility]/HCC [facility]/HCC) DIABETIC RETINOPATHY EXAM (NEGATIVE)(SCAN ORDER) Routine 10/06/2023 HEPATITIS C ANTIBODY W/RFX TO HCV RNA Routine 12/02/2021 9:31 AM CDT from Last 3 Months or Most Recently Relevant to Health Maintenance Results * OUTSIDE LAB (SCAN ORDER) (09/14/2024) Only the most recent of2 resultswithin the time period is included. 09/14/2024 us Doc [facility] Scanned SCANNING Final Resu lt * LIPID PANEL (05/30/2024 9:14 AM CDT) CHOLESTEROL 176 <200 mg/dL [facility] HDL 72 > OR = 40 mg/dL [facility] TRIGLYCERIDES 146 <150 mg/dL [facility] LDL (CALCULATED) 79 mg/dL (calc) [employer] [facility] Comment: Reference range: <100 Desirable range <100 mg/dL for primary prevention; ?? <70 mg/dL for patients with CHD or diabetic patients with > or = 2 CHD risk factors. LDL-C is now calculated using the Richard-Tran calculation, which is a validated novel method providing better accuracy than the Friedewald equation in the estimation of LDL-C. Richard SS et al. JUAN. 2013;310(19): 0498-4261 (http://education.M[employer]/faq/CCL630) CHOL/HDL RATIO 2.4 <5.0 (calc) [facility] NON HDL CHOLESTEROL 104 <130 mg/dL (calc) [employer] [facility] Comment: For patients with diabetes plus 1 major ASCVD risk factor, treating to a non-HDL-C goal of <100 mg/dL (LDL-C of <70 mg/dL) is considered a therapeutic option. 05/30/2024 9:14 AM CDT 05/30/2024 9:15 AM CDT Narrative [facility] - 05/31/2024 10:50 AM CDT FASTING:YES FASTING: YES Resulting Agency Comment Performing Organization Information: ?Site ID: [id number] ?Name: [facility] ?Address: [id number] [place] [address] [place] [address] ?Director: Sav Ramires MD [facility] Final Resul t Performing Organization Address City/[facility] Co de Phone Number [facility] [address] [place] [address], [place] * HEMOGLOBIN, GLYCOSYLATED (03/23/2024) HGB A1C 6.0 % [facility] 03/23/2024 [facility] Final Resul t Performing Organization Address [facility] Co de Phone Number [facility] [address] [place] [address], [place] * DIABETIC RETINOPATHY EXAM (NEGATIVE) (10/06/2023) [facility] Scanned SCANNING Final Resu lt Performing Organization Address [facility] de Phone Number [facility] * HEPATITIS C ANTIBODY W/RFX TO HCV RNA (12/02/2021 9:31 AM CDT) HEPATITIS C AB NON-REACTI VE NON-REACT [facility] SIGNAL TO CUTOFF 0.33 <[address] [facility] Comment: HCV antibody was non-reactive. There is no laboratory evidence of HCV infection. In most cases, no further action is required. However, if recent HCV exposure is suspected, a test for HCV RNA (test code 71866) is suggested. For additional information please refer to http://education.[employer]The[employer].iRates/faq/YOO40r5 (This link is being provided for informational/ educational purposes only.) 12/02/2021 9:31 AM CDT 12/02/2021 9:34 AM CDT Narrative [facility] - 12/03/2021 12:38 PM CDT FASTING:YES FASTING: YES [facility] Final Resul t Performing Organization Address City/[facility] Co de Phone Number [facility] [address] [address] [phone] from Last 3 Months or Most Recently Relevant to Health Maintenance Insurance [employer] Care Teams Manager Target Relationship Specialty Start Date End Date Hayley Martinez APNP [address] [place] [address] PCP - General NURSE PRACTITIONER 05/22/19
--- OUTSIDE RECORDS SUMMARY | 2024-09-22 23:47 | XMS_ITS | Encounter Summary ---
Author Organization [facility] Address [address] [place] [address]. [place], [place] [id number] [place] [id number] Care Team Providers Care Semi Driver Name Role Phone Hayley Martinez BRIDGETTE Primary Care Provider [phone] Reason for Visit * Reason Comments Lab (SCAN) Encounter Details Date Type Department Care Team (Latest Contact Info) Description 09/14/2024 Scan HEALTH INFO SRVCS Scanned, Doc Med Group Lab (SCAN) Social History Tobacco Use Types Packs/Day Years Used Date Smoking Tobacco: Former Cigarettes 1 - 2016 Smokeless Tobacco: Never Alcohol Use Standard [...] on file Sexual Orientation Not on file documented as of this encounter Plan of Treatment Upcoming Encounters Date Type Department Care Team (Late st Contact Info) Description 11/01/2024 9:30 AM IS CONSULTANT Office Visit [facility], [address] [place], [place] [phone] Malcolm Mccloud MD [facility]. [address] [place] [address] documented as of this encounter Procedures Procedure Name Priority Date/Time Associated Diagnosis Comments OUTSIDE LAB (SCAN ORDER) 09/14/2024 OUTSIDE LAB (SCAN ORDER) 09/14/2024 documented in this encounter Results * OUTSIDE LAB (SCAN ORDER) (09/14/2024) 09/14/2024 us Doc [facility] Scanned SCANNING Final Resu lt * OUTSIDE LAB (SCAN ORDER) (09/14/2024) 09/14/2024 us [facility] Scanned SCANNING Final Resu lt documented in this encounter Visit Diagnoses Not on filedocumented in this encounter Additional Health Concerns Assessment Noted Time PHQ-9 Depression Total Score: 1 12/11/19 23 1:24 PM CDT documented as of this encounter Care Teams Semi Driver Relationship Specialty Start Date End Date Hayley Martinez APNP [address] [place] [address] PCP - General NURSE PRACTITIONER 05/22/19 documented as of this encounter
--- OUTSIDE RECORDS SUMMARY | 2024-09-22 23:47 | XMS_ITS | Clinical Summary ---
Author Organization [facility] Address [address] [place] [address] Care Team Providers Care Foil Cutter Name Role Phone Hayley Martinez Primary Care Provider + Allergies No known active allergies Medications albuterol [...] 2nd Gen Pen Needle 32 gauge x 5/32 needle USE UTD 0 Active ascorbic acid [...] without long-term current use of insulin (CMS/HCC) ([facility]) TAKE 2 TABLETS(1000 MG) BY MOUTH TWICE DAILY 360 tablet 1 4 Active Dexcom G7 Sensor deviceIndicatio ns:Type 2 diabetes mellitus without complication, without long-term current use of insulin (CMS/HCC) ([facility]) Change sensor every 10 days 9 each [...] Will update labs. Verified that he uses [employer]. Aware to check results/results letter in [employer]. Will contact by phone if needed. Class [...] an order for full set of supplies. [employer]. Patient is benefitting from CPAP Assessment & Plan (12/17/2020 2:44 PM CDT): The patient will continue with auto titrating CPAP therapy at 5-20 cm water pressure. The patient denied need for supplies. The DME company is [employer]. The patient was encouraged to increase CPAP usage to 4 hours a night on 70% of the nights. The patient is benefitting from CPAP therapy. Chronic hypoxemic respiratory failure ([facility]) 07/31/2020 Sarcoidosis 12/26/2019 Left sided abdominal pain 10/31/2019 Type 2 diabetes mellitus wit hout complication, without long-term current use of insulin ([facility]) 05/22/2019 Assessment & Plan (05/29/2024 2:06 PM [...] Will update labs. Verified that he uses [employer]. Aware to check results/results letter in [employer]. Will contact by phone if needed. Discussed [...] Blood glucose monitoring : Start CGM with [employer] Mela 3 Adjustment to medications: Increase Ozempic to 2 mg once Start Farxiga 10 mg daily Continue metformin a 1000 mg twice a day Lower Tresiba to 40 units daily Advised to lowering Tresiba by 10 units every week as long as blood glucoses stay in the 90 to 130 range Encounters Date Type Department Care Team Description 09/11/2024 Telephone [facility] Diabetes and Endocrinology [address] [place] [phone] Mikaela Levy NP Appointment/Schedul es 09/07/2024 Telephone [facility] [address]th [place] [address] [place] [address] Merissa Choi RN 09/05/2024 Orders Only [facility] [address] [facility] [address]th [place] [address] [place] [address] Gatito Gama MD Sarcoidosis (Primary Dx); High risk medication use 09/05/2024 Telephone [facility] [address]th [place] [address] [place] [address] Darya Devine CMA 09/04/2024 Telephone [facility] [address]th [place] [address] [place] [address] Sybil RAMONA Lackey 08/25/2024 6:00 PM VEGETABLE BUNCHER Lab [facility] [address] [place] [address] Sarcoidosis 08/25/2024 4:00 PM VEGETABLE BUNCHER Office Visit [facility] [address] [facility] [address]th [place] [address] [place] [address] Gatito Gama MD Sarcoidosis (Primary Dx); High risk medication use 08/25/2024 3:35 PM VEGETABLE BUNCHER - 08/25/2024 11:59 PM VEGETABLE BUNCHER Hospital Encounter [facility] [address] [place] [address] Sarcoidosis Discharge Disposition: Discharge to home or self care 08/25/2024 3:15 PM VEGETABLE BUNCHER - 08/25/2024 11:59 PM VEGETABLE BUNCHER Hospital Encounter [facility] [address] [facility] [address] [place] [address] Sarcoidosis Discharge Disposition: Discharge to home or self care 08/07/2024 Orders Only [facility] [address] [facility] [address]th [place] [address] [place] [address] Gatito Gama MD Sarcoidosis (Primary Dx); High risk medication use 08/02/2024 Orders Only [facility] Medical Group Diabetes and Endocrinology [address] [place] [phone] Mikaela Levy, CAMRON Type 2 diabetes mellitus without complication, without long-term current use of insulin (CMS/HCC) (HCC) (Primary Dx) from Last 3 Months Immunizations Name Administration Dates Next Due DTP 02/09/1992, 1,1990,10/03 DTaP 03/30/1995 DTaP, Unspecified 03/30/1995 Hep B, Adolescent or Pediatric 08/14/2002,2001,04/12/2001 HiB 10/31/1991, 1,1990,10/03 Influenza, Quadrivalent, Misti l Culture-based MDCK, Preservative Free, Antibiotic Free, Intramuscular 06/11/2023,06/11/2022 Influenza, Quadrivalent, Spl it, Preservative Free, Intramuscular 06/27/2020 MMR 03/30/1995,10/31/1991 MMRV 03/30/1995,10/31/1991 OPV 03/30/1995, 2,02/06/1991,12/05,1990 OPV, Unspecified 03/30/1995, 2,02/06/1991,12/05,1990 Tdap 05/22/2019 Surgical History Surgery Date Site/Laterality Comments NASAL POLYP EXCISION Medical History Medical History Date Comments Diabetes mellitus (HCC) Family History Medical History Relation Name Comments Diabetes Father COPD Maternal Grandfather Emphysema Maternal Grandfather Diabetes Mother Relation Name Status Comments Father Maternal Grandfather Mother Social History Tobacco Use Types Packs/Day Years Used Date Smoking Tobacco: Former Cigarettes 1 6 1 - 05/31/2017 Smokeless Tobacco: Never Alcohol Use Standard Drinks/Week Comments Yes 0 (1 standard drink = 0.6 oz pur e alcohol) Sex and Gender Information Value Date Recorded Sex Assigned at Not on file Legal Sex Male 5:46 PM VEGETABLE BUNCHER Gender Identity Not on file Sexual Orientation Not on file Obstetrics History Last Filed Vital Signs Vital Sign Reading Time Taken Comments Blood Pressure 138/87 08/25/2024 3:54 PM VEGETABLE BUNCHER Pulse 100 08/25/2024 3:54 PM VEGETABLE BUNCHER Temperature 36.6 ??C (97.9 ??F) 08/25/2024 3:54 PM CS T Respiratory Rate 16 08/25/2024 3:54 PM VEGETABLE BUNCHER Oxygen Saturation 100% 08/25/2024 3:54 PM VEGETABLE BUNCHER Inhaled Oxygen Concentration - - Weight 142.9 kg (315 lb) 08/25/2024 3:54 PM VEGETABLE BUNCHER Height 177.8 cm (5' 10 ) 08/25/2024 3:54 PM VEGETABLE BUNCHER Body Mass Index 45.2 08/25/2024 3:54 PM VEGETABLE BUNCHER Plan of Treatment Health Maintenance Due Date Last Done Comments Depression Screening 1990 Dilated Eye Exam 1990 Pneumococcal vaccine <65 (1 of 2 - PCV) 1996 Regular Well Visit/Exam 18-64 2008 Zoster Vaccine (1 of 2) 2009 Influenza Vaccine (#1) 2024 , 06/11/2022, 06/27/2020 Hemoglobin A1C 11/26/2024 05/29/2024, 04/29/2023 Foot Exam 05/29/2025 05/29/2024 Albumin Creatinine Ratio, Urine 05/30/2025 05/30/2024 Lipid Panel 05/30/2025 05/30/2024, 1008/2023, 02/04/2023, Additional history exists eGFR 08/25/2025 08/25/2024, 100 08/2023, 01/14/2024, Additional history exists DTaP/Tdap/Td Vaccine (7 - Td or Tdap) 05/22/2029 05/22/2019, 03/30/1995, 03/30/1995, Additional history exists Varicella Vaccines Completed 03/30/1995, 10/31/1991 Hepatitis C Screening Completed 07/30/2020 HPV Vaccines Aged Out No longer eligi ble based on patient's age to complete this topic Procedures Procedure Name Priority Date/Time Associated Diagnosis Comments EGFR Routine 08/25/2024 4:33 PM VEGETABLE BUNCHER Sarcoidosis DIFFERENTIAL AUTO Routine 08/25/2024 4:3 3 PM VEGETABLE BUNCHER Sarcoidosis CBC WITH AUTO DIFFERENTIAL Routine 08/25/2024 4:33 PM VEGETABLE BUNCHER Sarcoidosis COMPREHENSIVE METABOLIC PANEL Routine 08/25/2024 4:33 PM VEGETABLE BUNCHER Sarcoidosis HISTOPLASMA ANTIBODY Routine 08/25/2024 4:33 PM VEGETABLE BUNCHER Sarcoidosis T-SPOT.TB Routine 08/25/2024 4:33 PM VEGETABLE BUNCHER Sarcoidosis XR CHEST PA LATERAL 2 VIEWS Schedule Routine, Read Routine (OP Routine) 08/25/2024 3:42 PM VEGETABLE BUNCHER Sarcoidosis PULMONARY FUNCTION TEST (PFT) Routine 08/25/2024 3:32 PM VEGETABLE BUNCHER Sarcoidosis LIPID PANEL Routine 05/30/2024 9:16 AM [...] HEPATITIS PANEL, ACUTE Routine 07/30/2020 3:27 PM VEGETABLE BUNCHER Sarcoidosis from Last 3 Months or Most Recently Relevant to Health Maintenance Results * Histoplasma Antibody Blood (08/25/2024 4:33 PM VEGETABLE BUNCHER) Pathologist [facility] Histoplasma Ab, yeast CF Negative Negative [facility] Histoplasma Ab, Immunodiffusion Negative Negative GENA GERMAN Comment: A negative complement fixation and immunodiffusion (CF/ID) result does not exclude the diagnosis of histoplasmosis. ?? Repeat testing by CF/ID in 1-2 weeks if clinically indicated. Test Performed by: [place] [address] [employer] Operator: Sheeba Bee Ph.D.; CLIA# [id number] Blood 08/25/2024 4:33 PM VEGETABLE BUNCHER 08/25/2024 5:24 PM VEGETABLE BUNCHER us Gatito Gama MD LAB MICROBIOLOGY - GENERAL O RDERABLES Final Result GENA CAMACHO [facility] [place] [address] [facility] Lab * T-SPOT.TB Blood (08/25/2024 4:33 PM VEGETABLE BUNCHER) Pathologist [facility] T-SPOT.TB Negative SeeBelow Comment: Normal Value: Negative A negative test [...] test. T-SPOT.TB Panel A Spot Count 0 [facility] T-SPOT.TB Panel B Spot Count 0 [facility] T-SPOT.TB Negative Control Passed [facility] T-SPOT.TB Positive Control Passed [facility] Comment: Test Performed at: [employer] [place], [place] ??[address] ? BAKARI QUINTANILLA,PHD Blood 08/25/2024 4:33 PM VEGETABLE BUNCHER 08/25/2024 5:14 PM VEGETABLE BUNCHER us Gatito Gama MD LAB MICROBIOLOGY - GENERAL O RDERABLES Final Result [facility] [place] [address] * eGFR (08/25/2024 4:33 PM VEGETABLE BUNCHER) Pathologist [facility] eGFR >90 >=60 mL/min/1. 73 m2 Comment: [...] last reviewed 2021. Blood 08/25/2024 4:33 PM VEGETABLE BUNCHER 08/25/2024 4:51 PM VEGETABLE BUNCHER Gatito Gama MD LAB BLOOD ORDERABLES Final R esult [facility] [place] [address] * Differential, auto (08/25/2024 4:33 PM VEGETABLE BUNCHER) Pathologist [facility] Neutrophil abs 5.3 1.5 - 6.5 K/cumm Imm gran abs 0.0 0.0 - 0.1 K/cumm [facility] Lymphocyte abs 1.2 0.8 - 3.3 K/cumm [facility] Monocyte abs 0.7 0.2 - 0.8 K/cumm [facility] Eosinophil abs 0.2 0.0 - 0.5 K/cumm [facility] Basophil abs 0.0 0.0 - 0.1 K/cumm [facility] Neutrophil pct 70.9 % [facility] Comment: Interpretive Data Percent cell count reference ranges are not reported, since discordance with absolute values may lead to misinterpretation of CBC data. Current Interpretive Data was last revised on 2017. Imm gran pct 0.5 % [facility] Comment: Interpretive Data Percent cell count reference ranges are not reported, since discordance with absolute values may lead to misinterpretation of CBC data. Current Interpretive Data was last revised on 2017. Lymphocyte pct 16.0 % [facility] Comment: Interpretive Data Percent cell count reference ranges are not reported, since discordance with absolute values may lead to misinterpretation of CBC data. Current Interpretive Data was last revised on 2017. Monocyte pct 9.9 % [facility] Comment: Interpretive Data Percent cell count reference ranges are not reported, since discordance with absolute values may lead to misinterpretation of CBC data. Current Interpretive Data was last revised on 2017. Eosinophil pct 2.4 % [facility] Comment: Interpretive Data Percent cell count reference ranges are not reported, since discordance with absolute values may lead to misinterpretation of CBC data. Current Interpretive Data was last revised on 2017. Basophil pct 0.3 % [facility] Comment: Interpretive Data Percent cell count reference ranges are not reported, since discordance with absolute values may lead to misinterpretation of CBC data. Current Interpretive Data was last revised on 2017. Blood 08/25/2024 4:33 PM VEGETABLE BUNCHER 08/25/2024 4:47 PM VEGETABLE BUNCHER Gatito Gama MD LAB BLOOD ORDERABLES Final R esult [facility] [place] [address] * CBC with auto differential (08/25/2024 4:33 PM VEGETABLE BUNCHER) WBC 7.5 3.8 - 9.9 K/cumm Hgb 14.5 13.0 - 17.5 g/dL [facility] Hct 42.9 38.9 - 50.3 % [facility] Plt 246 150 - 400 K/cumm [facility] MPV 10.7 9.1 - 12.3 fL [facility] RBC 5.07 4.30 - 5.80 M/cumm [facility] MCV 84.6 81.3 - 96.4 fL [facility] MCH 28.6 27.1 - 33.3 pg [facility] MCHC 33.8 32.3 - 35.7 g/dL [facility] RDW CV 13.8 11.1 - 14.9 % [facility] RDW SD 42.7 35.7 - 48.1 fL [facility] NRBC abs 0.00 0.00 - 0.01 K/cumm [facility] Blood 08/25/2024 4:33 PM VEGETABLE BUNCHER 08/25/2024 4:47 PM VEGETABLE BUNCHER Gatito Gama MD LAB BLOOD ORDERABLES Final R esult [facility] [place] [address] * Comprehensive metabolic panel (08/25/2024 4:33 PM VEGETABLE BUNCHER) Sodium 139 135 - 145 mmol/L Potassium, pl 3.9 3.3 - 4.9 mmol/L [facility] Chloride 100 97 - 110 mmol/L [facility] CO2 27 22 - 32 mmol/L [facility] Anion gap 12 2 - 15 mmol/L [facility] BUN 12 6 - 25 mg/dL [facility] Creatinine 1.01 0.80 - 1.30 mg/dL [facility] Glucose 92 70 - 199 mg/dL [facility] Comment: Interpretive Data Fasting glucose >/= 126 [...] classification and Diagnosis of Diabetes Diabetes Care 202; 46: S19-S40. Current interpretive data was last revised 2022. Calcium 9.5 8.5 - 10.3 mg/dL [facility] Bilirubin, total 0.6 0.1 - 1.2 mg/dL [facility] Protein, pl 8.0 6.5 - 8.5 g/dL [facility] Albumin 4.6 3.5 - 5.0 g/dL [facility] Alk phos 90 40 - 130 Units/L [facility] ALT 22 7 - 55 Units/L [facility] AST 35 10 - 50 Units/L [facility] Blood 08/25/2024 4:33 PM VEGETABLE BUNCHER 08/25/2024 4:47 PM VEGETABLE BUNCHER us Gatito Gama MD LAB BLOOD ORDERABLES Final R esult [facility] [place] [address] * XR Chest Pa Lateral 2 Views (08/25/2024 3:42 PM VEGETABLE BUNCHER) Anatomical Region Laterality Modality Body, Chest N/A Computed Radiogr aphy 08/25/2024 3:50 PM VEGETABLE BUNCHER Impressions 08/25/2024 3:50 PM VEGETABLE BUNCHER There are bilateral reticulonodular opacities in keeping [...] Malcolm Cassidy M.D. Narrative 08/25/2024 3:50 PM VEGETABLE BUNCHER EXAMINATION: XR CHEST PA LATERAL 2 VIEWS [...] Pulmonary Function Test - (08/25/2024 3:32 PM VEGETABLE BUNCHER) FVC PRE 3.74 L [facility] FVC %PRE PRED 82 % [facility] FEV1 PRE 2.18 L [facility] FEV1 %PRE PRED 58 % [facility] FEV1/FVC PRE 58.4 % [facility] Anatomical Region Laterality Modality PFT 08/25/2024 3:23 PM VEGETABLE BUNCHER Narrative 08/27/2024 1:57 PM VEGETABLE BUNCHER PFT performed at:->[facility] PFT [facility]- [facility] Procedure:->Spirometry Pulmonary Function [...] and %HbO2 is age dependent. However, the [facility] Function [facility] defines hypoxemia as a PaO2 <56 mm Hg or a %HbO2 <89%. Gatito Gama MD PFT ORDERABLES Final Result [...] 05/30/2024 9:17 AM CDT us Mikaela Levy NP LAB URINE ORDERABLES Rita l Result NATHAN [facility] [address] [place] [address] * Lipid panel (05/30/2024 9:16 AM CDT) [...] LDL-C. Richard SS et al. JUAN. 2013;310(19): 8089-9858 (http://education.GuideWall.Creditera/faq/QZE801) Chol/HDL ratio 2.4 <5.0 (calc) [facility] Non-HDL, (LDL+VLDL) 102 <130 mg/dL (calc) [facility] Comment: For patients with diabetes plus 1 major ASCVD risk factor, treating to a non-HDL-C goal of <100 mg/dL (LDL-C of <70 mg/dL) is considered a therapeutic option. Blood 05/30/2024 9:16 AM CDT 05/30/2024 9:17 AM CDT Mikaela Levy NP LAB BLOOD ORDERABLES Rita l Result [facility] [address] [facility] [place] [address] * (ABNORMAL) POCT hemoglobin A1c (05/29/2024 1:31 PM CDT) Hemoglobin A1C, POC 6.3 4.0 - 5.6 % Blood 05/29/2024 1:31 PM CDT us Mikaela Levy NP POINT OF CARE TEST ORDERA BLES Final Result * Hepatitis panel, acute (07/30/2020 3:27 PM VEGETABLE BUNCHER) Pathologist [facility] Hep A IgM Nonreactive Nonreactive [facility] Comment: Interpretive Data: If Hep A IgM Ab is reported as Equivocal, a new sample should be drawn in two weeks for testing. Current interpretive data was last revised on 19. Hep B core IgM Nonreactive Nonreactive [facility] Comment: Interpretive Data If HepB Core IgM Ab is reported as Equivocal, a new sample should be drawn in two weeks for testing. Current interpretive data was last revised on 19. Hep C Ab Nonreactive Nonreactive [facility] Comment:Antibodies to HCV no t detected. Does NOT exclude the possibility of recent exposure to HCV. HepBsAg Nonreactive Nonreactive [facility] Blood specimen (specimen) 07/30/2020 3:27 PM VEGETABLE BUNCHER 07/30/2020 3:50 PM VEGETABLE BUNCHER Gatito Gama MD LAB MICROBIOLOGY - GENERAL O RDERABLES Edited Result - Final [facility] [place] [address] from Last 3 Months or Most Recently Relevant to Health Maintenance Insurance [employer] [facility] [employer] Care Teams Foil Cutter Relationship Specialty Start Date End Date Hayley Martinez PA [address] [place] [phone] PCP - General Nurse Practitioner 11/02/19
--- OUTSIDE RECORDS SUMMARY | 2024-09-22 23:47 | XMS_ITS | Encounter Summary ---
Author Organization [facility] Address [address] [place] [address]. [place], [place] [id number] [place], [place] [id number] Care Team Providers Care Supervisor Cigarette Making Department Name Role Phone Hayley Martinez Primary Care Provider [phone] Encounter Details Date Type Department Care Team (Late st Contact Info) Description 08/08/2021 MyChart Message Enc [facility] Family & Internal Medicine [facility] [address] [place] [address] Hayley Martinez APNP [address] [place] [address] Medication Questions Social History Tobacco Use Types Packs/Day Years [...] st Contact Info) Description 11/01/2024 9:30 AM NURSING ASSISTANT Office Visit [facility] [address] [place] [address] Malcolm Mccloud MD [facility]. [facility] [address] [place] [address] documented as of this encounter Visit Diagnoses Not on filedocumented in this encounter Additional Health Concerns Assessment Noted Time PHQ-9 Depression Total Score: 1 05/22/20 19 9:36 AM CDT documented as of this encounter Care Teams Supervisor Cigarette Making Department Relationship Specialty Start Date End Date Hayley Martinez APNP [address] [place] [phone] PCP - General NURSE PRACTITIONER 05/22/19 documented as of this encounter
--- OUTSIDE RECORDS SUMMARY | 2024-09-22 23:48 | XMS_ITS | Referral Summary ---
Author Organization [facility] Address [address] [place] [address] Care Team Providers Care Ambulatory Care Coordinator Name Role Phone Unavailable Primary Care Provider Unavailabl e Source Comments [facility],non-owned Affiliates and Associated Physician Practices is amultiple site organization consisting of ambulatory clinics and hospital sitesin [place], [place], [place] and [place]. This disclosure is being madepursuant to the Care Everywhere program and may not contain all information available regarding this patient. Last updated 18.[facility] Social History Tobacco Use Types Packs/Day Years Used Date Smoking Tobacco: Never Assessed Sex and Gender Information Value Date Recorded Sex Assigned at Not on file Gender Identity Not on file Sexual Orientation Not on file Plan of Treatment Not on file
--- OUTSIDE RECORDS SUMMARY | 2024-09-22 23:48 | XMS_ITS | Encounter Summary ---
Author Organization [facility] Address [address] [place] [address] Care Team Providers Care Graphic Design Assistant Name Role Phone Unavailable Primary Care Provider Unavailabl e Encounter Details Date Type Department Care Team (Late st Contact Info) Description 08/02/2020 Lab Requisition [facility] [address] [facility] [place] [address] Natalie Patterson MD [address] [facility] 3 [place] [address] Social History Tobacco Use Types Packs/Day Years Used Date Smoking Tobacco: Never Assessed Sex and Gender Information Value Date Recorded Sex Assigned at Not on file Gender Identity Not on file Sexual Orientation Not on file documented as of this encounter Plan of Treatment Not on file documented as of this encounter Procedures Procedure Name Priority Date/Time Associated Diagnosis Comments DERMATOPATHOLOGY Routine 2020 12:0 0 AM HUMAN RESOURCE STATISTICIAN documented in this encounter Results * DERMATOPATHOLOGY (2020 12:00 AM HUMAN RESOURCE STATISTICIAN) Case Report Dermatopathology Report ? Case: [id number] ? Authorizing Provider: ??Natalie Patterson MD ? Collected: ? 2020 12:00 AM ? Ordering Location: ? [facility] ?Received: ?08/02/2020 08:29 AM ? Pathologist: ? Farideh Barton MD ? Specimen: ?Skin, right thumb ? 0 1:42 PM [facility] DERMATOPATHOLOGY [facility]ORATORY Final Diagnosis Specimen A. SKIN, right thumb: VERRUCA VULGARIS (B07.8) 0 1:42 PM [facility] DERMATOPATHOLOGY LABORATORY Clinical History R/O VV, irritated. 0 1:42 PM [facility] DERMATOPATHOLOGY [facility]ORATORY Gross Description Specimen A: Received is one formalin filled container labeled with the patient's name and designated right thumb. The specimen consists of a shave measuring [id number], bisected. Jar 0. 0 1:42 PM [facility] DERMATOPATHOLOGY LABORATORY Microscopic Description Specimen A. SKIN, right thumb: There is digitated epidermal hyperplasia, hypergranulosis, vacuolated granular layer cells, and compact hyperorthokeratosis . 0 1:42 PM [facility] DERMATOPATHOLOGY LABORATORY Disclaimer An external and internal positive and negative controls are appropriate for the histochemical, immunohistochemical and immunofluorescence stain(s) in this case (if any), except where stated explicitly. The performance characteristics of the stain(s) cited in this report were developed and its performance characteristic determined by the Dermatopathology Laboratory at [facility], directed by Dr. Ethan Jones. These tests need not be, and therefore are not, approved by the [place] Food and Drug Administration. The tests are used for clinical purposes. Billing Codes Specimen Charges Stain Charges 34207 1 0 1:42 PM [facility] DERMATOPATHOLOGY LABORATORY Embedded Images 0 1:42 PM HUMAN RESOURCE STATISTICIAN DERMATOPATHOLOGY LABORATORY Pathology/Cytolog y TISSUE SPECIMEN FROM SKIN / Unknown 2020 08/02/2020 8:29 AM HUMAN RESOURCE STATISTICIAN Natalie Patterson MD LAB - PATHOLOGY/CYT OLOGY ORDERABLES DERMATOPATHOLOGY LABORATORY [facility] - Department of Dermatology [facility] [address] [place] [address], [address] [phone] documented in this encounter Visit Diagnoses Not on filedocumented in this encounter
--- OUTSIDE RECORDS SUMMARY | 2024-09-22 23:48 | XMS_ITS | Clinical Summary ---
Author Organization [facility] Address [address] [address] Care Team Providers Care Control Equipment Electrician Name Role Phone Unavailable Primary Care Provider Unavailabl e Source Comments [facility],non-owned Affiliates and Associated Physician Practices is amultiple site organization consisting of ambulatory clinics and hospital sitesin [place], [place], [place] and [place]. This disclosure is being madepursuant to the Care Everywhere program and may not contain all information available regarding this patient. Last updated 18.[facility] [employer] Social History Tobacco Use Types Packs/Day Years Used Date Smoking Tobacco: Never Assessed Sex and Gender Information Value Date Recorded Sex Assigned at Not on file Gender Identity Not on file Sexual Orientation Not on file Plan of Treatment Health Maintenance Due Date Last Done Comments HIV SCREENING 2005 HEPATITIS C SCREENING 07/27/2008 DTAP/TDAP/TD VACCINES (1 - Tdap) 2009 HEPATITIS B VACCINE (1 of 3 - 19+ 3-dose series) 2009 COVID-19 VACCINE (1 - 2023-2 5 season) 2024 INFLUENZA VACCINE (#1) 2024 DEPRESSION SCREENING 08/30/2024 ZOSTER VACCINE (1 of 2) 2040 HIB VACCINE Aged Out No longer eligi ble based on patient's age to complete this topic HPV VACCINE Aged Out No longer eligi ble based on patient's age to complete this topic MENINGOCOCCAL (Group B) VACCINE Aged Out No longer eligible based on patient's age to complete this topic MENINGOCOCCAL VACCINE Aged Out No chema daija eligible based on patient's age to complete this topic PNEUMOCOCCAL VACCINE Aged Out No long er eligible based on patient's age to complete this topic
[2024-09-22 23:49] VITALS: BP 151/90; PULSE 106; RESP 19; TEMP 36.4; O2SAT 99
[2024-09-23 00:05] LABS: Glucose Point of Care 162 mg/dl (65-105)
--- NOTE | 2024-09-23 02:16 | PC.NURSE ---
Poison Control Contacted and said pt would have been told to stay home May have GI upset, tiredness, peak 3-4 hour, double dose should be tolerated well.
--- NOTE | 2024-09-23 02:20 | ED.GENADULT ---
HPI - General Adult General Chief complaint: Recheck/Abnormal Lab/Rx Stated complaint: accidentally doubled up on bp medicine &metformin Time Seen by Provider: 09/23/24 02:14 History of Present Illness HPI narrative: Patient 34-year-old gentleman who presents emergency department with chief complaint of accidentally taking his daily medications when he should have taken his night medications patient states that he took a extra dose of amlodipine an extra dose of metformin patient reports he did this around 10 or 11:00 a.m. this evening patient reports no complaints Related Data Allergies Allergy/AdvReac Type Severity Reaction Status Date / Time No Known Allergies Allergy Mild Verified 09/22/24 23:46 Review of Systems Review of Systems: A 10 system review of systems was completed on the patient and is negative except for what is stated in the HPI. Nursing and ancillary documentation was reviewed. Exam Narrative: GENERAL: Well-appearing, well-nourished, and in no acute distress. HEAD: Normocephalic, atraumatic. EYES: PERRLA and EOMI. ENT: Nares clear, no rhinorrhea or epistaxis. Mucous membranes moist. NECK: Supple. CHEST: Clear to auscultation. No respiratory distress. HEART: Regular rate and rhythm. No murmur heard. Normal peripheral pulses. ABDOMEN: Soft, nontender, nondistended, normal active bowel sounds. EXTREMITIES: Normal range of motion. No edema. SKIN: Warm, dry, no rash. NEURO: No focal deficits. Alert and oriented x3. PSYCH: Normal mood and affect. Course Vital Signs Vital signs: Vital Signs Temperature 36.4 C 09/22/24 23:49 Pulse Rate 106 H 09/22/24 23:49 Respiratory Rate 09/22/24 23:49 Blood Pressure 151/90 H 09/22/24 23:49 Pulse Oximetry 99 09/22/24 23:49 Oxygen Delivery Room Air 09/22/24 23:49 Temperature 36.4 C 09/22/24 23:49 Pulse Rate 106 H 09/22/24 23:49 Respiratory Rate 19 09/22/24 23:49 Blood Pressure 151/90 H 09/22/24 23:49 Pulse Oximetry 99 09/22/24 23:49 Oxygen Delivery Room Air 09/22/24 23:49 Medical Decision Making [facility] Narrative Medical decision making narrative: Differential diagnosis is accidental overdose. Patient denies suicidal homicidal ideation denied intentional overdose. Case was discussed with poison control who cleared the patient for discharge Vital Signs Vital Signs: Vital Signs Temperature 36.4 C 09/22/24 23:49 Pulse Rate 106 H 09/22/24 23:49 Respiratory Rate 19 09/22/24 23:49 Blood Pressure 151/90 H 09/22/24 23:49 Pulse Oximetry 99 09/22/24 23:49 Oxygen Delivery Room Air 09/22/24 23:49 Temperature 36.4 C 09/22/24 23:49 Pulse Rate 106 H 09/22/24 23:49 Respiratory Rate 19 09/22/24 23:49 Blood Pressure 151/90 H 09/22/24 23:49 Pulse Oximetry 99 09/22/24 23:49 Oxygen Delivery Room Air 09/22/24 23:49 Lab Data Labs: Lab Results 09/23/24 Range/Units 00:02 POC Capillary Glucose 162 H (65-105) mg/dl Discharge Plan Discharge Clinical Impression: Accidental drug ingestion Patient Disposition: Home, Self-Care Condition: Stable Instructions: Antibiotic Form, Adult Overdose (ED) Additional Instructions: Please avoid taking access severe medications. It is recommended that you keep your doses and make sure that you take the appropriately timed medications. If you do happened to have an episode like this in the future please contact poison Control as they can provide guidance Patient Language: Peruvian Follow-up/Referrals: Michelle,CAMRON Hardy [Primary Care Provider] - Time of Disposition: :22
--- OUTSIDE RECORDS SUMMARY | 2024-09-23 02:27 | XMS_ITS | Encounter Summary ---
Author Organization [facility] Address [address] [place] [address]. [place], [place] [address] [place] [address] Care Team Providers Care Curator Herbarium Name Role Phone Hayley Martinez Primary Care Provider [phone] Encounter Details Date Type Department Care Team (Late st Contact Info) Description 04/05/2020 [employer] Message Enc [facility] [address] [place] [address] Hayley Martinez APNP [address] [place] [address] RE: Follow Up/Update Social History [...] st Contact Info) Description 11/01/2024 9:30 AM BODY PRESSER Office Visit [facility], [address] [place] [address] Malcolm Mccloud MD [facility]. [address] [place] [address] documented as of this encounter Visit Diagnoses Not on filedocumented in this encounter Additional Health Concerns Infection Onset Date Last Indicated Resolved Time COVID-19 Rule Out 05/29/2020 05/30/2020 06/07/2020 7:30 AM CDT Assessment Noted Time PHQ-9 Depression Total Score: 1 05/22/20 9:36 AM CDT documented as of this encounter Care Teams Curator Herbarium Relationship Specialty Start Date End Date Hayley Martinez APNP [address] [place] [id number] PCP - General NURSE PRACTITIONER 05/22/19 documented as of this encounter
--- OUTSIDE RECORDS SUMMARY | 2024-09-23 02:27 | XMS_ITS | Clinical Summary ---
Author Organization [facility] Address [address] [address] Care Team Providers Care Food Adviser Name Role Phone Unavailable Primary Care Provider Unavailabl e Source Comments [facility],non-owned Affiliates and Associated Physician Practices is amultiple site organization consisting of ambulatory clinics and hospital sitesin [place], [place], [place] and [place]. This disclosure is being madepursuant to the Care Everywhere program and may not contain all information available regarding this patient. Last updated 18.[facility] [employer] Social History Tobacco Use Types Packs/Day Years [...]
--- OUTSIDE RECORDS SUMMARY | 2024-09-23 02:27 | XMS_ITS | Referral Summary ---
Author Organization [facility] Address [address] [place] [address] Care Team Providers Care Trade Embalmer Name Role Phone Hayley Martinez Primary Care Provider + Encounters Date Type Department Care Team Description 09/11/2024 Telephone [facility] Diabetes and Endocrinology [address] [place] [phone] Mikaela Levy NP Appointment/Schedul es 09/07/2024 Telephone [facility] [address] [facility] 8th [place] [address] [place] [address] Merissa Choi RN 09/05/2024 Orders Only [facility] [address] [facility] 8th [place] [address] [place] [address] Gatito Gama MD Sarcoidosis (Primary Dx); High risk medication use 09/05/2024 Telephone [facility] [address] [facility] 8th [place] [address] [place] [phone] Darya Devine CMA 09/04/2024 Telephone [facility] [address] [facility] Medicine 8th [place] [address] [place] [phone] Darya Devine CMA 08/25/2024 6:00 PM ACTUARIAL DIRECTOR Lab [facility] ([facility]) [address] [place] [address] Sarcoidosis 08/25/2024 3:35 PM ACTUARIAL DIRECTOR - 08/25/2024 11:59 PM ACTUARIAL DIRECTOR Hospital Encounter [facility] ([facility]) [address] [place] [address] Sarcoidosis Discharge Disposition: Discharge to home or self care 08/25/2024 4:00 PM ACTUARIAL DIRECTOR Office Visit [facility] [address] [facility] 8th [address] [place] [phone] Gatito Gama MD Sarcoidosis (Primary Dx); High risk medication use 08/25/2024 3:15 PM ACTUARIAL DIRECTOR - 08/25/2024 11:59 PM ACTUARIAL DIRECTOR Hospital Encounter [facility] [address] [facility] [address] [place] [address] Sarcoidosis Discharge Disposition: Discharge to home or self care 08/07/2024 Orders Only [facility] [address] [facility] 8th [address] [place] [phone] Gattio Gama MD Sarcoidosis (Primary Dx); High risk medication use 08/02/2024 Orders Only [facility] Diabetes and Endocrinology [address] [place] [phone] Mikaela Levy NP Type 2 diabetes mellitus without complication, without long-term current use of insulin ([facility]/HCC) (HCC) (Primary Dx) from Last 3 [...] complication, without long-term current use of insulin ([facility]) ([facility]) TAKE 2 TABLETS(1000 MG) BY MOUTH TWICE DAILY 360 tablet 1 4 Active Dexcom G7 Sensor deviceIndicatio ns:Type 2 diabetes mellitus without complication, without long-term current use of insulin (CMS/HCC) ([facility]) Change sensor every 10 days 9 [...] mychart. Aware to check results/results letter in [employer]. Will contact by phone if needed. Class [...] an order for full set of supplies. [employer]. Patient is benefitting from CPAP Assessment & Plan (12/17/2020 2:44 PM CDT): The patient will continue with auto titrating CPAP therapy at 5-20 cm water pressure. The patient denied need for supplies. The DME company is [employer]. The patient was encouraged to increase CPAP usage to 4 hours a night on 70% of the nights. The patient is benefitting from CPAP therapy. Chronic hypoxemic respiratory failure ([facility]) 07/31/2020 Sarcoidosis 12/26/2019 Left sided abdominal pain 10/31/2019 Type 2 diabetes mellitus wit hout complication, without long-term current use of insulin ([facility]) 05/22/2019 Assessment & Plan (05/29/2024 2:06 PM CDT): Chronic problem. A1c at goal 6.3%. no changes at this time. Discussed dropping back metformin to 1000mg daily to see if BG rises. Current medications: Farxiga 10mg daily Metformin XR 1000mg twice daily with meals Ozempic 2mg weekly [facility]. Letter sent to get copy of report. Will update labs. Verified that he uses [employer]. Aware to check results/results letter in [employer]. Will contact by phone if needed. Discussed [...] on file Legal Sex Male 5:46 PM ACTUARIAL DIRECTOR Gender Identity Not on file Sexual Orientation Not on file Last Filed Vital Signs Vital Sign Reading Time Taken Comments Blood Pressure 138/87 08/25/2024 3:54 PM ACTUARIAL DIRECTOR Pulse 100 08/25/2024 3:54 PM ACTUARIAL DIRECTOR Temperature 36.6 ??C (97.9 ??F) 08/25/2024 3:54 PM CS T Respiratory Rate 16 08/25/2024 3:54 PM ACTUARIAL DIRECTOR Oxygen Saturation 100% 08/25/2024 3:54 PM ACTUARIAL DIRECTOR Inhaled Oxygen Concentration - - Weight 142.9 kg (315 lb) 08/25/2024 3:54 PM ACTUARIAL DIRECTOR Height 177.8 cm (5' 10 ) 08/25/2024 3:54 PM ACTUARIAL DIRECTOR Body Mass Index 45.2 08/25/2024 3:54 PM ACTUARIAL DIRECTOR Plan of Treatment Not on file Procedures Procedure Name Priority Date/Time Associated Diagnosis Comments EGFR Routine 08/25/2024 4:33 PM ACTUARIAL DIRECTOR Sarcoidosis DIFFERENTIAL AUTO Routine 08/25/2024 4:3 3 PM ACTUARIAL DIRECTOR Sarcoidosis CBC WITH AUTO DIFFERENTIAL Routine 08/25/2024 4:33 PM ACTUARIAL DIRECTOR Sarcoidosis COMPREHENSIVE METABOLIC PANEL Routine 08/25/2024 4:33 PM ACTUARIAL DIRECTOR Sarcoidosis HISTOPLASMA ANTIBODY Routine 08/25/2024 4:33 PM ACTUARIAL DIRECTOR Sarcoidosis T-SPOT.TB Routine 08/25/2024 4:33 PM ACTUARIAL DIRECTOR Sarcoidosis XR CHEST PA LATERAL 2 VIEWS Schedule Routine, Read Routine (OP Routine) 08/25/2024 3:42 PM ACTUARIAL DIRECTOR Sarcoidosis PULMONARY FUNCTION TEST (PFT) Routine 08/25/2024 3:32 PM ACTUARIAL DIRECTOR Sarcoidosis LIPID PANEL Routine 05/30/2024 9:16 AM [...] HEPATITIS PANEL, ACUTE Routine 07/30/2020 3:27 PM ACTUARIAL DIRECTOR Sarcoidosis from Last 3 Months or Most Recently Relevant to Health Maintenance Results * Histoplasma Antibody Blood (08/25/2024 4:33 PM ACTUARIAL DIRECTOR) Histoplasma Ab, yeast CF Negative Negative [facility] Lab Histoplasma Ab, Immunodiffusion Negative Negative [facility] Comment: A negative complement fixation and immunodiffusion (CF/ID) result does not exclude the diagnosis of histoplasmosis. ?? Repeat testing by CF/ID in 1-2 weeks if clinically indicated. Test Performed by: [address] [address] Junior Account Manager: Sheeba Bee Ph.D.; CLIA# [id number] Blood 08/25/2024 4:33 PM ACTUARIAL DIRECTOR 08/25/2024 5:24 PM ACTUARIAL DIRECTOR us Gatito Gama MD LAB MICROBIOLOGY - GENERAL O RDERABLES Final Result [facility] [place] [address] [place] ref Lab * T-SPOT.TB Blood (08/25/2024 4:33 PM ACTUARIAL DIRECTOR) [facility] T-SPOT.TB Negative See[facility] Comment: Normal Value: Negative [...] test. T-SPOT.TB Panel A Spot Count 0 [facility] T-SPOT.TB Panel B Spot Count 0 [facility] T-SPOT.TB Negative Control Passed [facility] T-SPOT.TB Positive Control Passed [facility] Comment: Test Performed at: [facility] [employer] [address] [place] [address] ??[phone] ? BAKARI QUINTANILLA,PHD Blood 08/25/2024 4:33 PM ACTUARIAL DIRECTOR 08/25/2024 5:14 PM ACTUARIAL DIRECTOR us Gatito Gama MD LAB MICROBIOLOGY - GENERAL O RDERABLES Final Result Performing Organization Address City/[facility]/ZIP Co de Phone Number [facility] [place] [address] * eGFR (08/25/2024 4:33 PM ACTUARIAL DIRECTOR) eGFR >90 >=60 mL/min/1. 73 m2 Comment: [...] last reviewed 2021. Blood 08/25/2024 4:33 PM ACTUARIAL DIRECTOR 08/25/2024 4:51 PM ACTUARIAL DIRECTOR us Gatito Gama MD LAB BLOOD ORDERABLES Final R esult RASHADMYX JANICE [facility] [place] [address] * Differential, auto (08/25/2024 4:33 PM ACTUARIAL DIRECTOR) Neutrophil abs 5.3 1.5 - 6.5 K/cumm Imm gran abs 0.0 0.0 - 0.1 K/cumm [facility] Lymphocyte abs 1.2 0.8 - 3.3 K/cumm [facility] Monocyte abs 0.7 0.2 - 0.8 K/cumm [facility] Eosinophil abs 0.2 0.0 - 0.5 K/cumm [facility] Basophil abs 0.0 0.0 - 0.1 K/cumm [facility] Neutrophil pct 70.9 % [facility] Comment: Interpretive Data Percent cell count reference ranges are not reported, since discordance with absolute values may lead to misinterpretation of CBC data. Current Interpretive Data was last revised on 2017. Imm gran pct 0.5 % [facility] Comment: Interpretive Data Percent cell count reference ranges are not reported, since discordance with absolute values may lead to misinterpretation of CBC data. Current Interpretive Data was last revised on 2017. Lymphocyte pct 16.0 % [facility] Comment: Interpretive Data Percent cell count reference ranges are not reported, since discordance with absolute values may lead to misinterpretation of CBC data. Current Interpretive Data was last revised on 2017. Monocyte pct 9.9 % [facility] Comment: Interpretive Data Percent cell count reference ranges are not reported, since discordance with absolute values may lead to misinterpretation of CBC data. Current Interpretive Data was last revised on 2017. Eosinophil pct 2.4 % [facility] Comment: Interpretive Data Percent cell count reference ranges are not reported, since discordance with absolute values may lead to misinterpretation of CBC data. Current Interpretive Data was last revised on 2017. Basophil pct 0.3 % [facility] Comment: Interpretive Data Percent cell count reference ranges are not reported, since discordance with absolute values may lead to misinterpretation of CBC data. Current Interpretive Data was last revised on 2017. Blood 08/25/2024 4:33 PM ACTUARIAL DIRECTOR 08/25/2024 4:47 PM ACTUARIAL DIRECTOR us Gatito Gama MD LAB BLOOD ORDERABLES Final R esult [facility] Department [place] [address] * CBC with auto differential (08/25/2024 4:33 PM ACTUARIAL DIRECTOR) [facility] WBC 7.5 3.8 - 9.9 K/cumm Hgb 14.5 13.0 - 17.5 g/dL [facility] Hct 42.9 38.9 - 50.3 % [facility] Plt 246 150 - 400 K/cumm [facility] MPV 10.7 9.1 - 12.3 fL [facility] RBC 5.07 4.30 - 5.80 M/cumm [facility] MCV 84.6 81.3 - 96.4 fL [facility] MCH 28.6 27.1 - 33.3 pg [facility] MCHC 33.8 32.3 - 35.7 g/dL [facility] RDW CV 13.8 11.1 - 14.9 % [facility] RDW SD 42.7 35.7 - 48.1 fL [facility] NRBC abs 0.00 0.00 - 0.01 K/cumm [facility] Blood 08/25/2024 4:33 PM ACTUARIAL DIRECTOR 08/25/2024 4:47 PM ACTUARIAL DIRECTOR Gatito Gama MD LAB BLOOD ORDERABLES Final R esult [facility] One [facility] [place] [address] * Comprehensive metabolic panel (08/25/2024 4:33 PM ACTUARIAL DIRECTOR) [facility] Sodium 139 135 - 145 mmol/L Potassium, pl 3.9 3.3 - 4.9 mmol/L [facility] Chloride 100 97 - 110 mmol/L [facility] CO2 27 22 - 32 mmol/L [facility] Anion gap 12 2 - 15 mmol/L [facility] BUN 12 6 - 25 mg/dL [facility] Creatinine 1.01 0.80 - 1.30 mg/dL [facility] Glucose 92 70 - 199 mg/dL [facility] Comment: Interpretive Data Fasting glucose >/= 126 [...] Calcium 9.5 8.5 - 10.3 mg/dL [facility] Bilirubin, total 0.6 0.1 - 1.2 mg/dL [facility] Protein, pl 8.0 6.5 - 8.5 g/dL [facility] Albumin 4.6 3.5 - 5.0 g/dL [facility] Alk phos 90 40 - 130 Units/L [facility] ALT 22 7 - 55 Units/L [facility] AST 35 10 - 50 Units/L [facility] Blood 08/25/2024 4:33 PM ACTUARIAL DIRECTOR 08/25/2024 4:47 PM ACTUARIAL DIRECTOR us Gatito Gama MD LAB BLOOD ORDERABLES Final R esult [facility] [place] [address] * XR Chest Pa Lateral 2 Views (08/25/2024 3:42 PM ACTUARIAL DIRECTOR) Anatomical Region Laterality Modality Body, Chest N/A Computed Radiogr aphy 08/25/2024 3:50 PM ACTUARIAL DIRECTOR Impressions 08/25/2024 3:50 PM ACTUARIAL DIRECTOR There are bilateral reticulonodular opacities in keeping [...] Malcolm Cassidy M.D. Narrative 08/25/2024 3:50 PM ACTUARIAL DIRECTOR EXAMINATION: XR CHEST PA LATERAL 2 VIEWS [...] Pulmonary Function Test - (08/25/2024 3:32 PM ACTUARIAL DIRECTOR) FVC PRE 3.74 L [facility] FVC %PRE PRED 82 % [facility] FEV1 PRE 2.18 L [facility] FEV1 %PRE PRED 58 % [facility] FEV1/FVC PRE 58.4 % [facility] Anatomical Region Laterality Modality PFT 08/25/2024 3:23 PM ACTUARIAL DIRECTOR Narrative 08/27/2024 1:57 PM ACTUARIAL DIRECTOR PFT performed at:->[facility] PFT [facility]- [facility] Procedure:->Spirometry Pulmonary Function [...] and %HbO2 is age dependent. However, the [facility] Function Laboratory defines hypoxemia as a [...] 05/30/2024 9:17 AM CDT us Mikaela Levy FIRE CONTROL MECHANIC LAB URINE ORDERABLES Rita l Result [facility] [address] [place] [address] * Lipid panel (05/30/2024 9:16 AM CDT) [...] LDL-C. Richard TANG et al. JUAN. 2013;310(19): 4167-0561 (http://education.[employer]/faq/SJV094) Chol/HDL ratio 2.4 <5.0 (calc) [facility] Non-HDL, (LDL+VLDL) 102 <130 mg/dL (calc) [facility] Comment: For patients with diabetes plus 1 major ASCVD risk factor, treating to a non-HDL-C goal of <100 mg/dL (LDL-C of <70 mg/dL) is considered a therapeutic option. Blood 05/30/2024 9:16 AM CDT 05/30/2024 9:17 AM CDT Mikaela Levy FIRE CONTROL MECHANIC LAB BLOOD ORDERABLES Rita l Result [facility] [address] [place] [address] * (ABNORMAL) POCT hemoglobin A1c (05/29/2024 1:31 PM CDT) Hemoglobin A1C, POC 6.3 4.0 - 5.6 % Blood 05/29/2024 1:31 PM CDT us Mikaela Levy NP POINT OF CARE TEST ORDERA BLES Final Result * Hepatitis panel, acute (07/30/2020 3:27 PM ACTUARIAL DIRECTOR) Hep A IgM Nonreactive Nonreactive [facility] [...] 19. Hep C Ab Nonreactive Nonreactive [facility] Comment:Antibodies to HCV no t detected. Does NOT exclude the possibility of recent exposure to HCV. HepBsAg Nonreactive Nonreactive [facility] Blood specimen (specimen) 07/30/2020 3:27 PM ACTUARIAL DIRECTOR 07/30/2020 3:50 PM ACTUARIAL DIRECTOR us Gatito Gama MD LAB MICROBIOLOGY - GENERAL O RDERABLES Edited Result - Final [facility] [place] [address] from Last 3 Months or Most Recently Relevant to Health Maintenance Insurance [id number] OPTIONS PPO [facility] Care Teams Trade Embalmer Relationship Specialty Start Date End Date Hayley Martinez PA [address] [place] [id number] PCP - General Nurse Practitioner 11/02/19
--- OUTSIDE RECORDS SUMMARY | 2024-09-23 02:27 | XMS_ITS | Encounter Summary ---
Author Organization [facility] Address [address] [place] [address]. [place], [place] [id number] [place], [place] [id number] Care Team Providers Care Group President Name Role Phone Hayley Martinez Primary Care Provider [phone] Encounter Details Date Type Department Care Team (Late st Contact Info) Description 08/08/2021 MyChart Message Enc [facility] Medical Group Family & Internal Medicine [facility] [address] [place] [address] Hayley Martinez APNP [address] [place] [address] Medication Questions Social History Tobacco [...] st Contact Info) Description 11/01/2024 9:30 AM APPRISE COUNSELOR Office Visit [facility] [facility], [address] [place] [address] Malcolm Mccloud MD [facility]. [facility] [address] [place] [address] documented as of this encounter Visit Diagnoses Not on filedocumented in this encounter Additional Health Concerns Assessment Noted Time PHQ-9 Depression Total Score: 1 05/22/20 19 9:36 AM CDT documented as of this encounter Care Teams Group President Relationship Specialty Start Date End Date Hayley Martinez APNP [address] [place] [address] PCP - General NURSE PRACTITIONER 05/22/19 documented as of this encounter
--- OUTSIDE RECORDS SUMMARY | 2024-09-23 02:27 | XMS_ITS | Patient Health Summary ---
Author Organization [facility] Address [address] [facility] [place] [address] Care Team Providers Care Preschool Assistant Name Role Phone Unavailable Primary Care Provider Unavailabl e Note from [facility],non-owned Affiliates and Associated Physician Practices is amultiple site organization consisting of ambulatory clinics and hospital sitesin [place], [place], [place] and [place]. This disclosure is being madepursuant to the Care Everywhere program and may not contain all information available regarding this patient. Last updated 18.[facility] Social History Tobacco Use Types Packs/Day Years Used Date Smoking Tobacco: Never Assessed Sex and Gender Information Value Date Recorded Sex Assigned at Not on file Gender Identity Not on file Sexual Orientation Not on file Procedures * DERMATOPATHOLOGY(Performed 2020) Results * DERMATOPATHOLOGY (2020 12:00 AM REGIONAL ECONOMIST) Case Report Dermatopathology Report ? Case: [id number] ? Authorizing Provider: ??Natalie Patterson MD ? Collected: ? 2020 12:00 AM ? Ordering Location: ? [facility] Care DermPath Lab ?Received: ?08/02/2020 08:29 AM ? Pathologist: ? Farideh Barton MD ? Specimen: ?Skin, right thumb ? 0 1:42 PM [facility] DERMATOPATHOLOGY LABORATORY Final Diagnosis Specimen A. SKIN, right thumb: VERRUCA VULGARIS (B07.8) 0 1:42 PM [facility] DERMATOPATHOLOGY LABORATORY Clinical History R/O VV, irritated. 0 1:42 PM [facility] DERMATOPATHOLOGY LABORATORY Gross Description Specimen A: Received is one formalin filled container labeled with the patient's name and designated right thumb. The specimen consists of a shave measuring [id number], bisected. Jar 0. 0 1:42 PM [facility]OMIST DERMATOPATHOLOGY LABORATORY Microscopic Description Specimen A. SKIN, right thumb: There is digitated epidermal hyperplasia, hypergranulosis, vacuolated granular layer cells, and compact hyperorthokeratosis . 0 1:42 PM [facility] DERMATOPATHOLOGY LABORATORY Disclaimer An external and internal positive and negative controls are appropriate for the histochemical, immunohistochemical and immunofluorescence stain(s) in this case (if any), except where stated explicitly. The performance characteristics of the stain(s) cited in this report were developed and its performance characteristic determined by the Dermatopathology Laboratory at [facility], directed by Dr. Ethan Jones. These tests need not be, and therefore are not, approved by the [place] Food and Drug Administration. The tests are used for clinical purposes. Billing Codes Specimen Charges Stain Charges 77805 1 0 1:42 PM [facility] DERMATOPATHOLOGY LABORATORY Embedded Images 0 1:42 PM [facility] DERMATOPATHOLOGY LABORATORY Pathology/Cytolog y TISSUE SPECIMEN FROM SKIN / Unknown 2020 08/02/2020 8:29 AM REGIONAL ECONOMIST Natalie Patterson MD LAB - PATHOLOGY/CYT OLOGY ORDERABLES Performing Organization Address City/State/[place] Co de Phone Number DERMATOPATHOLOGY LABORATORY [facility] - Department of Dermatology [facility] [address] [place] [address], [address] [phone]
--- OUTSIDE RECORDS SUMMARY | 2024-09-23 02:27 | XMS_ITS | Clinical Summary ---
Author Organization [facility] Address [address] [place] [address]. [place], [place] [address] [place] [address] Care Team Providers Care Station Chief Name Role Phone Hayley Martinez Primary Care Provider [phone] Allergies No known active allergies Medications albuterol [...] complication, without long-term current use of insulin ([facility] HHS/[facility]) 1 Device by Does not apply route nightly. 100 each 0 Active loratadine 10 MG tablet Take 1 tablet (10 mg total) by mouth daily. Active Insulin Pen Needle (PEN NEEDLES 29GX1/2 ) 29G X 12MM MiscIndications:Typ e 2 diabetes mellitus without complication, without long-term current use of insulin ([facility] HHS/HCC) 1 Units by Does [...] complication, without long-term current use of insulin ([facility]) 1 strip by Does not apply route 3 (three) times a day. 300 strip 1 0 Active Lancets MiscIndications:Typ e 2 diabetes mellitus without complication, without long-term current use of insulin ([facility]) 1 Device by Does not apply route 3 (three) times a day. 300 Container 1 0 Active azaTHIOprine (IMURAN) 50 MG tablet Take 3 tablets (150 mg total) by mouth daily. 4 Active Continuous Glucose Sensor (Mosoro G7 SENSOR) Misc CHANGE SENSOR EVERY 10 [...] apnea) 12/02/2021 Elevated CPK 12/12/2020 Pulmonary sarcoidosis ([facility]) 12/26/19 20 Essential hypertension 05/22/2019 Type 2 diabetes mellitus wit hout complication, without long-term current use of insulin ([facility]) 05/22/2019 Resolved Problems Problem Noted Date Diagnosed Date Resolved Date BMI 45.0-49.9, adult ([facility]/HCC [facility]) 11/25/2020 03/23/2024 Left sided abdominal pain 10/31/2019 Encounters Date Type Department Care Team Description 09/14/2024 Scan [facility] SRV[facility] Scanned, Doc [facility] Lab (SCAN) 08/25/2024 Scan [facility] Scanned, Doc Med Group 08/15/2024 Telephone [facility] Family & Internal Medicine [address] [address] Hayley Martinez APNP Lab Results 07/17/[address] [address] Malcolm Mccloud MD Appointment Request [...] st Contact Info) Description 11/01/2024 9:30 AM BOW STRING MAKER Office Visit [facility] [facility], [address] [place] [address] Malcolm Mccloud MD [facility]. [address] [place] [address] Health Maintenance Due Date Last Done Comments COVID-19 Vaccine (#1) 1995 Influenza Adult (#1) 2024 06/11/2023, 06/11/2022, 06/27/2020 PHQ-2 (Physician [place]) 08/30/2024 03/23/2024 Hemoglobin A1C 09/23/2024 03/23/2024, 11/28, 12/02/2021, Additional history exists Annual Physical 03/23/2025 03/23/2024, 11/28, 12/02/2021 PHQ-2 (Physician [place]) 03/23/2025 03/23/2024 Kidney Health Evaluation 05/30/2025 05/30/2024 [...] complication, without long-term current use of insulin ([facility]/HCC [facility]/HCC) DIABETIC RETINOPATHY EXAM (NEGATIVE)(SCAN ORDER) Routine 10/06/2023 [...] 9:14 AM CDT) CHOLESTEROL 176 <200 mg/dL [email or web address] [facility] HDL 72 > OR = 40 mg/dL [email or web address] [facility] TRIGLYCERIDES 146 <150 mg/dL [email or web address] [facility] LDL (CALCULATED) 79 mg/dL (calc) [facility] Comment: Reference range: <100 Desirable range <100 mg/dL for primary prevention; ?? <70 mg/dL for patients with CHD or diabetic patients with > or = 2 CHD risk factors. LDL-C is now calculated using the Richard-Tran calculation, which is a validated novel method providing better accuracy than the Friedewald equation in the estimation of LDL-C. Richard SS et al. JUAN. 2013;310(19): 9435-4853 (http://education.Kiwi Crate/faq/FZD616) CHOL/HDL RATIO 2.4 <5.0 (calc) [facility] DIAGNOSTICS [facility] NON HDL CHOLESTEROL 104 <130 mg/dL (calc) [facility] Comment: For patients with diabetes plus 1 major ASCVD risk factor, treating to a non-HDL-C goal of <100 mg/dL (LDL-C of <70 mg/dL) is considered a therapeutic option. 05/30/2024 9:14 AM CDT 05/30/2024 9:15 AM CDT Narrative [email or web address] Manan BRANCH - 05/31/2024 10:50 AM CDT FASTING:YES FASTING: YES Resulting Agency Comment Performing Organization Information: ?Site ID: [id number] ?Name: [facility] ?Address: [id number] [place] [address] [place] [id number] ?Director: Sav Ramires MD [facility] Final Resul t Performing Organization Address City/[facility] Co de Phone Number [facility] [id number] [place] [address], [place] * HEMOGLOBIN, GLYCOSYLATED (03/23/2024) HGB A1C 6.0 % [facility] 03/23/2024 [facility]ley [facility] Final Resul t Performing Organization Address [facility] Co de Phone Number [facility] [address] [place] [address], [place] * DIABETIC RETINOPATHY EXAM (NEGATIVE) (10/06/2023) [employer] [facility] Scanned SCANNING Final Resu lt Performing Organization Address [facility] de Phone Number [facility] * HEPATITIS [...] a test for HCV RNA (test code 72619) is suggested. For additional information please refer to http://education.Zipfit.CourseWeaver/faq/HFZ67h3 (This link is being provided for informational/ educational purposes only.) 12/02/2021 9:31 AM CDT 12/02/2021 9:34 AM CDT Narrative [facility] - 12/03/2021 12:38 PM CDT FASTING:YES FASTING: YES [facility] Final Resul t Performing Organization Address City/[facility] Co de Phone Number [facility] [address] [place] [phone] from Last 3 Months or Most Recently Relevant to Health Maintenance Insurance [employer] Care Teams Station Chief Relationship Specialty Start Date End Date Hayley Martinez APNP [address] [place] [id number] PCP - General NURSE PRACTITIONER 05/22/19
--- OUTSIDE RECORDS SUMMARY | 2024-09-23 02:27 | XMS_ITS | Clinical Summary ---
Author Organization [facility] Address [address] [place] [address] Care Team Providers Care Case Mgr Name Role Phone Hayley Martinez Primary Care [...] current use of insulin (CMS/HCC) ([facility]) TAKE 2 TABLETS(1000 MG) BY MOUTH TWICE DAILY 360 tablet 1 4 Active Dexcom G7 Sensor deviceIndicatio ns:Type 2 diabetes mellitus without complication, without long-term current use of insulin (CMS/HCC) ([facility]) Change sensor every 10 days 9 [...] Will update labs. Verified that he uses [employer]. Aware to check results/results letter in [employer]. Will contact by phone if needed. Class [...] an order for full set of supplies. [email or web address]. Patient is benefitting from CPAP Assessment & Plan (12/17/2020 2:44 PM CDT): The patient will continue with auto titrating CPAP therapy at 5-20 cm water pressure. The patient denied need for supplies. The DME company is [employer]. The patient was encouraged to increase CPAP usage to 4 hours a night on 70% of the nights. The patient is benefitting from CPAP therapy. Chronic hypoxemic respiratory failure ([facility]) 07/31/2020 Sarcoidosis 12/26/2019 Left sided abdominal pain 10/31/2019 Type 2 diabetes mellitus wit hout complication, without long-term current use of insulin ([facility]) 05/22/2019 Assessment & Plan (05/29/2024 2:06 PM CDT): Chronic problem. A1c at goal 6.3%. no changes at this time. Discussed dropping back metformin to 1000mg daily to see if BG rises. Current medications: Farxiga 10mg daily Metformin XR 1000mg twice daily with meals Ozempic 2mg weekly DM eye exam at [facility] summer 2023. Letter sent to get copy of report. Will update labs. Verified that he uses [employer]. Aware to check results/results letter in [employer]. Will contact by phone if needed. Discussed [...] Blood glucose monitoring : Start CGM with REMOTVstyle Mela 3 Adjustment to medications: Increase Ozempic to 2 mg once Start Farxiga 10 mg daily Continue metformin a 1000 mg twice a day Lower Tresiba to 40 units daily Advised to lowering Tresiba by 10 units every week as long as blood glucoses stay in the 90 to 130 range Encounters Date Type Department Care Team Description 09/11/2024 Telephone [facility] Diabetes and Endocrinology [address] [place] [phone] Mikaela Levy NP Appointment/Schedul es 09/07/2024 Telephone [facility] Pulmonary [facility] [address] [place] [address] [place] [address] Merissa Choi RN 09/05/2024 Orders Only [facility] [address] [facility] [address] [place] [address] [place] [address] Gatito Gama MD Sarcoidosis (Primary Dx); High risk medication use 09/05/2024 Telephone [facility] [address] [place] [address] [place] [address] Darya Devine CMA 09/04/2024 Telephone [facility] [address] [place] [address] [place] [address] Sybil RAMONA Lackey 08/25/2024 6:00 PM CARE ATTENDANT Lab [facility] [address] [place] [address] Sarcoidosis 08/25/2024 4:00 PM CARE ATTENDANT Office Visit [facility] [address] [facility] [address] [place] [address] [place] [address] Gatito Gama MD Sarcoidosis (Primary Dx); High risk medication use 08/25/2024 3:35 PM CARE ATTENDANT - 08/25/2024 11:59 PM CARE ATTENDANT Hospital Encounter [facility] [address] [place] [address] Sarcoidosis Discharge Disposition: Discharge to home or self care 08/25/2024 3:15 PM CARE ATTENDANT - 08/25/2024 11:59 PM CARE ATTENDANT Hospital Encounter [facility] [address] [facility] [address] [place] [address] Sarcoidosis Discharge Disposition: Discharge to home or self care 08/07/2024 Orders Only [facility] [address] [facility] [address] [place] [address] [place] [address] Gatito Gama MD Sarcoidosis (Primary Dx); High risk medication use 08/02/2024 Orders Only [facility] Diabetes and Endocrinology [address] [place] [phone] Mikaela Levy, CAMRON Type 2 diabetes [...] on file Legal Sex Male 5:46 PM CARE ATTENDANT Gender Identity Not on file Sexual Orientation Not on file Obstetrics History Last Filed Vital Signs Vital Sign Reading Time Taken Comments Blood Pressure 138/87 08/25/2024 3:54 PM CARE ATTENDANT Pulse 100 08/25/2024 3:54 PM CARE ATTENDANT Temperature 36.6 ??C (97.9 ??F) 08/25/2024 3:54 PM CS T Respiratory Rate 16 08/25/2024 3:54 PM CARE ATTENDANT Oxygen Saturation 100% 08/25/2024 3:54 PM CARE ATTENDANT Inhaled Oxygen Concentration - - Weight 142.9 kg (315 lb) 08/25/2024 3:54 PM CARE ATTENDANT Height 177.8 cm (5' 10 ) 08/25/2024 3:54 PM CARE ATTENDANT Body Mass Index 45.2 08/25/2024 3:54 PM CARE ATTENDANT Plan of Treatment Health Maintenance Due Date [...] Diagnosis Comments EGFR Routine 08/25/2024 4:33 PM CARE ATTENDANT Sarcoidosis DIFFERENTIAL AUTO Routine 08/25/2024 4:3 3 PM CARE ATTENDANT Sarcoidosis CBC WITH AUTO DIFFERENTIAL Routine 08/25/2024 4:33 PM CARE ATTENDANT Sarcoidosis COMPREHENSIVE METABOLIC PANEL Routine 08/25/2024 4:33 PM CARE ATTENDANT Sarcoidosis HISTOPLASMA ANTIBODY Routine 08/25/2024 4:33 PM CARE ATTENDANT Sarcoidosis T-SPOT.TB Routine 08/25/2024 4:33 PM CARE ATTENDANT Sarcoidosis XR CHEST PA LATERAL 2 VIEWS Schedule Routine, Read Routine (OP Routine) 08/25/2024 3:42 PM CARE ATTENDANT Sarcoidosis PULMONARY FUNCTION TEST (PFT) Routine 08/25/2024 3:32 PM CARE ATTENDANT Sarcoidosis LIPID PANEL Routine 05/30/2024 9:16 AM [...] HEPATITIS PANEL, ACUTE Routine 07/30/2020 3:27 PM CARE ATTENDANT Sarcoidosis from Last 3 Months or Most Recently Relevant to Health Maintenance Results * Histoplasma Antibody Blood (08/25/2024 4:33 PM CARE ATTENDANT) Pathologist [facility] Histoplasma Ab, yeast CF Negative Negative [place] [facility] Histoplasma Ab, Immunodiffusion Negative Negative GENA GERMAN Comment: A negative complement fixation and immunodiffusion (CF/ID) result does not exclude the diagnosis of histoplasmosis. ?? Repeat testing by CF/ID in 1-2 weeks if clinically indicated. Test Performed by: [place] [address] Title Inspector: Sheeba Bee Ph.D.; CLIA# [id number] Blood 08/25/2024 4:33 PM CARE ATTENDANT 08/25/2024 5:24 PM CARE ATTENDANT us Gatito Gama MD LAB MICROBIOLOGY - GENERAL O RDERABLES Final Result GENA CAMACHO [facility] [place] [address] [facility] Lab * T-SPOT.TB Blood (08/25/2024 4:33 PM CARE ATTENDANT) Pathologist [facility] T-SPOT.TB Negative SeeBelow Comment: Normal Value: Negative [...] test. T-SPOT.TB Panel A Spot Count 0 [facility] T-SPOT.TB Panel B Spot Count 0 [facility] T-SPOT.TB Negative Control Passed [facility] T-SPOT.TB Positive Control Passed [facility] Comment: Test Performed at: [address] [place], [place] ??[address] ? BAKARI QUINTANILLA,PHD Blood 08/25/2024 4:33 PM CARE ATTENDANT 08/25/2024 5:14 PM CARE ATTENDANT us Gatito Gama MD LAB MICROBIOLOGY - GENERAL O RDERABLES Final Result [facility] Department [place] [address] * eGFR (08/25/2024 4:33 PM CARE ATTENDANT) Pathologist [facility] eGFR >90 >=60 mL/min/1. 73 m2 Comment: [...] last reviewed 2021. Blood 08/25/2024 4:33 PM CARE ATTENDANT 08/25/2024 4:51 PM CARE ATTENDANT Gatito Gama MD LAB BLOOD ORDERABLES Final R esult [facility] Department [place] [address] * Differential, auto (08/25/2024 4:33 PM CARE ATTENDANT) Pathologist [facility] Neutrophil abs 5.3 1.5 - 6.5 K/cumm Imm gran abs 0.0 0.0 - 0.1 K/cumm [facility] Lymphocyte abs 1.2 0.8 - 3.3 K/cumm [facility] Monocyte abs 0.7 0.2 - 0.8 K/cumm [facility] Eosinophil abs 0.2 0.0 - 0.5 K/cumm [facility] Basophil abs 0.0 0.0 - 0.1 K/cumm [facility] Neutrophil pct 70.9 % [facility] Comment: Interpretive Data Percent cell count reference ranges are not reported, since discordance with absolute values may lead to misinterpretation of CBC data. Current Interpretive Data was last revised on 2017. Imm gran pct 0.5 % [facility] Comment: Interpretive Data Percent cell count reference ranges are not reported, since discordance with absolute values may lead to misinterpretation of CBC data. Current Interpretive Data was last revised on 2017. Lymphocyte pct 16.0 % [facility] Comment: Interpretive Data Percent cell count reference ranges are not reported, since discordance with absolute values may lead to misinterpretation of CBC data. Current Interpretive Data was last revised on 2017. Monocyte pct 9.9 % [facility] Comment: Interpretive Data Percent cell count reference ranges are not reported, since discordance with absolute values may lead to misinterpretation of CBC data. Current Interpretive Data was last revised on 2017. Eosinophil pct 2.4 % [facility] Comment: Interpretive Data Percent cell count reference ranges are not reported, since discordance with absolute values may lead to misinterpretation of CBC data. Current Interpretive Data was last revised on 2017. Basophil pct 0.3 % [facility] Comment: Interpretive Data Percent cell count reference ranges are not reported, since discordance with absolute values may lead to misinterpretation of CBC data. Current Interpretive Data was last revised on 2017. Blood 08/25/2024 4:33 PM CARE ATTENDANT 08/25/2024 4:47 PM CARE ATTENDANT Gatito Gama MD LAB BLOOD ORDERABLES Final R esult [facility] [place] [address] * CBC with auto differential (08/25/2024 4:33 PM CARE ATTENDANT) WBC 7.5 3.8 - 9.9 K/cumm Hgb 14.5 13.0 - 17.5 g/dL [facility] Hct 42.9 38.9 - 50.3 % [facility] Plt 246 150 - 400 K/cumm [facility] MPV 10.7 9.1 - 12.3 fL [facility] RBC 5.07 4.30 - 5.80 M/cumm [facility] MCV 84.6 81.3 - 96.4 fL [facility] MCH 28.6 27.1 - 33.3 pg [facility] MCHC 33.8 32.3 - 35.7 g/dL [facility] RDW CV 13.8 11.1 - 14.9 % [facility] RDW SD 42.7 35.7 - 48.1 fL [facility] NRBC abs 0.00 0.00 - 0.01 K/cumm [facility] Blood 08/25/2024 4:33 PM CARE ATTENDANT 08/25/2024 4:47 PM CARE ATTENDANT Gatito Gama MD LAB BLOOD ORDERABLES Final R esult [facility] [place] [address] * Comprehensive metabolic panel (08/25/2024 4:33 PM CARE ATTENDANT) Sodium 139 135 - 145 mmol/L Potassium, pl 3.9 3.3 - 4.9 mmol/L [facility] Chloride 100 97 - 110 mmol/L [facility] CO2 27 22 - 32 mmol/L [facility] Anion gap 12 2 - 15 mmol/L [facility] BUN 12 6 - 25 mg/dL [facility] Creatinine 1.01 0.80 - 1.30 mg/dL [facility] Glucose 92 70 - 199 mg/dL [facility] Comment: Interpretive Data Fasting glucose >/= 126 [...] 2022. Calcium 9.5 8.5 - 10.3 mg/dL [facility] Bilirubin, total 0.6 0.1 - 1.2 mg/dL [facility] Protein, pl 8.0 6.5 - 8.5 g/dL [facility] Albumin 4.6 3.5 - 5.0 g/dL [facility] Alk phos 90 40 - 130 Units/L [facility] ALT 22 7 - 55 Units/L [facility] AST 35 10 - 50 Units/L [facility] Blood 08/25/2024 4:33 PM CARE ATTENDANT 08/25/2024 4:47 PM CARE ATTENDANT us Gtaito Gama MD LAB BLOOD ORDERABLES Final R esult [facility] [place] [address] * XR Chest Pa Lateral 2 Views (08/25/2024 3:42 PM CARE ATTENDANT) Anatomical Region Laterality Modality Body, Chest N/A Computed Radiogr aphy 08/25/2024 3:50 PM CARE ATTENDANT Impressions 08/25/2024 3:50 PM CARE ATTENDANT There are bilateral reticulonodular opacities in keeping [...] Malcolm Cassidy M.D. Narrative 08/25/2024 3:50 PM CARE ATTENDANT EXAMINATION: XR CHEST PA LATERAL 2 VIEWS [...] Pulmonary Function Test - (08/25/2024 3:32 PM CARE ATTENDANT) FVC PRE 3.74 L [facility] FVC %PRE PRED 82 % [facility] FEV1 PRE 2.18 L [facility] FEV1 %PRE PRED 58 % [facility] FEV1/FVC PRE 58.4 % [facility] Anatomical Region Laterality Modality PFT 08/25/2024 3:23 PM CARE ATTENDANT Narrative 08/27/2024 1:57 PM CARE ATTENDANT PFT performed at:->[facility] Adult PFT Lab- [facility] Procedure:->Spirometry Pulmonary Function [...] and %HbO2 is age dependent. However, the [facility] Pulmonary Function Laboratory defines hypoxemia as [...] LAB URINE ORDERABLES Rita l Result NATHAN [facility] [address] [place] [address] * Lipid panel (05/30/2024 9:16 AM CDT) [...] LDL-C. Richard SS et al. JUAN. 2013;310(19): 5049-8270 (http://education.Pharmacopeia.Presentain/faq/VBJ849) Chol/HDL ratio 2.4 <5.0 (calc) [facility] Non-HDL, (LDL+VLDL) 102 <130 mg/dL (calc) [facility] Comment: For patients with diabetes plus 1 major ASCVD risk factor, treating to a non-HDL-C goal of <100 mg/dL (LDL-C of <70 mg/dL) is considered a therapeutic option. Blood 05/30/2024 9:16 AM CDT 05/30/2024 9:17 AM CDT Mikaela Levy NP LAB BLOOD ORDERABLES Rita l Result [facility] [address] [facility] [place] [phone] * (ABNORMAL) POCT hemoglobin A1c (05/29/2024 1:31 PM CDT) Hemoglobin A1C, POC 6.3 4.0 - 5.6 % Blood 05/29/2024 1:31 PM CDT us Mikaela Levy NP POINT OF CARE TEST ORDERA BLES Final Result * Hepatitis panel, acute (07/30/2020 3:27 PM CARE ATTENDANT) Pathologist [facility] Hep A IgM Nonreactive Nonreactive [facility] Comment: Interpretive Data: If Hep A IgM [...] on 19. Hep C Ab Nonreactive Nonreactive [facility] Comment:Antibodies to HCV no t detected. Does NOT exclude the possibility of recent exposure to HCV. HepBsAg Nonreactive Nonreactive [facility] Blood specimen (specimen) 07/30/2020 3:27 PM CARE ATTENDANT 07/30/2020 3:50 PM CARE ATTENDANT Gatito Gama MD LAB MICROBIOLOGY - GENERAL O RDERABLES Edited Result - Final [facility] [place] [address] from Last 3 Months or Most Recently Relevant to Health Maintenance Insurance [facility] PPO [facility] Care Teams Case Mgr Relationship Specialty Start Date End Date Hayley Martinez PA [address] [place] [address] [id number] PCP - General Nurse Practitioner 11/02/19
--- OUTSIDE RECORDS SUMMARY | 2024-09-23 02:27 | XMS_ITS | Clinical Summary ---
Author Organization [facility] Address [address] [place] [phone] Phone Care Team Providers Care Medical Records Field Technician Name Role Phone Unavailable Primary Care Provider [...] on file Legal Sex Male 6:05 AM SPORTS DEVELOPMENT OFFICER Gender Identity Not on file Sexual Orientation Not on file Last Filed Vital Signs Vital Sign Reading Time Taken Comments Blood Pressure 150/66 07/07/2011 11:48 AM SPORTS DEVELOPMENT OFFICER Pulse 72 07/07/2011 11:48 AM SPORTS DEVELOPMENT OFFICER Temperature 37.1 ??C (98.7 ??F) 07/07/2011 9:58 AM CS T Respiratory Rate 18 07/07/2011 11:48 AM SPORTS DEVELOPMENT OFFICER Oxygen Saturation 99% 07/07/2011 11:48 AM SPORTS DEVELOPMENT OFFICER Inhaled Oxygen Concentration - - Weight - [...]
--- OUTSIDE RECORDS SUMMARY | 2024-09-23 02:27 | XMS_ITS | Referral Summary ---
Author Organization [facility] Address [address] [place] [address] Care Team Providers Care Documentation Clerk Name Role Phone Unavailable Primary Care Provider Unavailabl e Source Comments [facility],non-owned Affiliates and Associated Physician Practices is amultiple site organization consisting of ambulatory clinics and hospital sitesin [place], [place], [place] and [place]. This disclosure is being madepursuant to the Care Everywhere program and may not contain all information available regarding this patient. Last updated 18.[facility] Social History Tobacco Use Types Packs/Day Years Used Date Smoking Tobacco: Never Assessed Sex and Gender Information Value Date Recorded Sex Assigned at Not on file Gender Identity Not on file Sexual Orientation Not on file Plan of Treatment Not on file
--- OUTSIDE RECORDS SUMMARY | 2024-09-23 02:27 | XMS_ITS | Encounter Summary ---
Author Organization [facility] Address [address] [place] [address]. [place], [place] [address] [place] [address] Care Team Providers Care Sales Order Processor Name Role Phone Hayley Martinez BRIDGETTE Primary Care Provider [phone] Reason for Visit * Reason Comments Lab [...] st Contact Info) Description 11/01/2024 9:30 AM CONTENT ENGINEER Office Visit [facility], [address] [place], [place] [id number] Malcolm Mccloud MD [facility]. [address] [place] [address] documented as of this encounter Procedures [...] documented as of this encounter Care Teams Sales Order Processor Relationship Specialty Start Date End Date Hayley Martinez APNP [address] [place] [id number] PCP - General NURSE PRACTITIONER 05/22/19 documented as of this encounter
--- OUTSIDE RECORDS SUMMARY | 2024-09-23 02:27 | XMS_ITS | Encounter Summary ---
Author Organization [facility] Address [address] [place] [address] Care Team Providers Care Dryer Operator Name Role Phone Unavailable Primary Care Provider Unavailabl e Encounter Details Date Type Department Care Team (Late st Contact Info) Description 08/02/2020 Lab Requisition [facility] [address] [facility], [facility] [place] [address] Natalie Patterson MD [address] [facility] [address] [place] [address] Social History Tobacco Use Types Packs/Day Years [...] Comments DERMATOPATHOLOGY Routine 2020 12:0 0 AM SURFACER documented in this encounter Results * DERMATOPATHOLOGY (2020 12:00 AM SURFACER) Case Report Dermatopathology Report ? Case: [id number] ? Authorizing Provider: ??Natalie Patterson MD ? Collected: ? 2020 12:00 AM ? Ordering Location: ? [facility] ?Received: ?08/02/2020 08:29 AM ? Pathologist: ? Farideh Barton MD ? Specimen: ?Skin, right thumb ? 0 1:42 PM [facility] Final Diagnosis Specimen A. SKIN, right thumb: VERRUCA VULGARIS (B07.8) 0 1:42 PM [facility] Clinical History R/O VV, irritated. 0 1:42 PM [facility] Gross Description Specimen A: Received is one formalin filled container labeled with the patient's name and designated right thumb. The specimen consists of a shave measuring [id number], bisected. Jar 0. 0 1:42 PM [facility] Microscopic Description Specimen A. SKIN, right thumb: There is digitated epidermal hyperplasia, hypergranulosis, vacuolated granular layer cells, and compact hyperorthokeratosis . 0 1:42 PM [facility] Disclaimer An external and internal positive and negative controls are appropriate for the histochemical, immunohistochemical and immunofluorescence stain(s) in this case (if any), except where stated explicitly. The performance characteristics of the stain(s) cited in this report were developed and its performance characteristic determined by the Dermatopathology Laboratory at [facility], directed by Dr. Ethan Jones. These tests need not be, and therefore are not, approved by the [place] Food and Drug Administration. The tests are used for clinical purposes. Billing Codes Specimen Charges Stain Charges 54106 1 0 1:42 PM [facility] Embedded Images 0 1:42 PM [facility] DERMAT[facility]ORY Pathology/Cytolog y TISSUE SPECIMEN FROM SKIN / Unknown 2020 08/02/2020 8:29 AM SURFACER Natalie Patterson MD LAB - PATHOLOGY/CYT OLOGY ORDERABLES DERMATOPATHOLOGY LABORATORY [facility] - Department of Dermatology [facility] [address] [place] [address], [address] [phone] documented in this encounter Visit Diagnoses Not on filedocumented in this encounter
--- OUTSIDE RECORDS SUMMARY | 2024-09-23 02:27 | XMS_ITS | Encounter Summary ---
Author Organization [facility] Address [address] [place] [address]. 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. [address] [place] [address] documented as of this encounter Visit Diagnoses Not on filedocumented in this encounter Additional Health Concerns Infection Onset Date Last Indicated Resolved Time COVID-19 Rule Out 05/29/2020 05/30/2020 06/07/2020 7:30 AM CDT Assessment Noted Time PHQ-9 Depression Total Score: 1 05/22/20 19 9:36 AM CDT documented as of this encounter Care Teams Marketing Intelligence Manager Relationship Specialty Start Date End Date Hayley Martinez APNP [address] [place] [address] PCP - General NURSE PRACTITIONER 05/22/19 documented as of this encounter
[2024-09-23 02:29] VITALS: BP 123/74; PULSE 100; RESP 18; O2SAT 98
[2024-09-23 02:42] VITALS: PULSE 96; RESP 13; O2SAT 100
== END 2024-09-23 02:51 | disposition home or self-care (01) ==
LOC: ANHED 09-23 02:25
PROVIDERS: Emergency Provider Emergency Medicine; PCP Registered Nurse
DX: T46.1X1A Poisoning by calcium-channel blockers, accidental (unintentional), initial encounter (principal); T38.3X1A Poisoning by insulin and oral hypoglycemic [antidiabetic] drugs, accidental (unintentional), initial encounter
CPT/HCPCS: 82948; 99282